=== PATIENT | female | born 1940 | race Caucasian/White ===

== ENCOUNTER 2017-07-07 13:20 | Inpatient (IN) | payer MEDICARE ==
[~2017-07-07] VITALS: Ht 157.5 cm; Wt 54.5 kg
[~2017-07-07 13:20] MED LIST: ALBU2.5V2 IH; ALPR0.5T8 PO; AMOX250C4 PO; ASPI-555 PO; ATOR10TA69 PO; BUDE0.5A8 IH; DOXY100T2 PO; ESTR1TAB30 PO; FLUT16H NS; FOLI1TAB15 PO; HYDR500C2 PO; IPRA0.2S54 IH; MIRT15TA6 PO; MIRT15TA7 PO; NICO-578 BC; ONDA4TAB9 PO; PANT40TA PO; PARO37.511 PO; PRED20TA3 PO; ROFL500T PO; SERT50TA12 PO; SPIR25TA4 PO; SUCR1ORA3 PO; TIOT18CA3 IH; TRAM50TA4 PO; VERA360C2 PO; VIT1CAPS47 PO; XOPENEX HFA IH; ZOLP5TAB8 PO
[2017-07-07] MEDS ORDERED: METHYLPREDNISOLONE SOD SUCC 125MG/2ML VIAL ONE (14:10)
[2017-07-07] MEDS ORDERED: ONDANSETRON HCL 4 MG/2 ML VIAL ONE ×2 (14:10→18:20)
[2017-07-07 14:18] LABS: BASOPHILS % (AUTO) 0.5 % (0.0-5.0); EOSINOPHILS % (AUTO) 2.3 % (0.0-8.0); HEMATOCRIT 39.1 % (36-48); LYMPHOCYTES % (AUTO) 7.5 % (21.0-51.0); MEAN CORPUSCULAR HEMOGLOBIN 27.4 pg (27.0-33.0); MEAN CORPUSCULAR HGB CONC 31.5 g/dL (32.0-36.0); MEAN CORPUSCULAR VOLUME 86.8 fL (79-99); MONOCYTES % (AUTO) 5.4 % (3.0-13.0); NEUTROPHILS % (AUTO) 84.3 % (40.0-77.0); PLATELET COUNT (AUTO) 621 K/uL (130-400); RED CELL DISTRIBUTION WIDTH 18.4 % (11.0-15.5); WHITE BLOOD COUNT (AUTO) 9.9 K/uL (4.8-10.8)
[2017-07-07] MEDS ORDERED: IPRATROPIUM/ALBUTEROL SULFATE 3 ML SOLUTION IH ONE ×2 (14:20→23:03)
[2017-07-07 14:26] LABS: CREATININE 1.2 mg/dL (0.5-1.5); POTASSIUM 3.5 mmol/L (3.5-5.1)
[2017-07-07] MEDS ORDERED: LEVOFLOXACIN 500 MG/D5W 100 ML 100 ML ONE (16:41)
[2017-07-07] MEDS ORDERED: SODIUM CHLORIDE 0.9% 1000ML 1,000 ML IV ONE (16:41)
[2017-07-07] MEDS ORDERED: ZOLPIDEM TARTRATE 5 MG TAB PO PRN (17:00)
[2017-07-07] MEDS: SODIUM CHLORIDE 0.9% 1000ML 1,000 ML IV SCH (17:00)
[2017-07-07] MEDS: IPRATROPIUM/ALBUTEROL SULFATE 3 ML SOLUTION IH PRN ×2 (18:24→23:05)
[2017-07-07] MEDS ORDERED: ACETYLCYSTEINE 20% 200MG/ML 4ML VIAL ONE (18:29)
[2017-07-07] MEDS: BUDESONIDE 0.5 MG/2 ML INH IH SCH (18:39)
[2017-07-07] MEDS ORDERED: METHYLPREDNISOLONE SOD SUCC 40MG/ML 1ML ONE (21:04)
[2017-07-07] MEDS ORDERED: ZOLPIDEM TARTRATE 5 MG TAB ONE (21:04)
[2017-07-08] MEDS ORDERED: METHYLPREDNISOLONE SOD SUCC 40MG/ML 1ML ONE ×2 (03:08→09:00)
[2017-07-08] MEDS: IPRATROPIUM/ALBUTEROL SULFATE 3 ML SOLUTION IH PRN ×4 (07:02→21:42)
[2017-07-08] MEDS: BUDESONIDE 0.5 MG/2 ML INH IH SCH ×2 (07:02→22:00)
[2017-07-08] MEDS ORDERED: IPRATROPIUM/ALBUTEROL SULFATE 3 ML SOLUTION IH ONE ×2 (07:05→11:41)
[2017-07-08] MEDS: SODIUM CHLORIDE 0.9% 1000ML 1,000 ML IV SCH (08:24)
[2017-07-08] MEDS ORDERED: SODIUM CHLORIDE 0.9% 1000ML 1,000 ML IV ONE (09:00)
[2017-07-08] MEDS ORDERED: LEVOFLOXACIN 500 MG/D5W 100 ML 100 ML ONE (09:00)
[2017-07-08] MEDS: METHYLPREDNISOLONE SOD SUCC 40MG/ML 1ML IVP SCH ×2 (10:00→20:50)
[2017-07-08 12:49] VITALS: BP 133/62
[2017-07-08] MEDS: LEVOFLOXACIN 500 MG/D5W 100 ML 100 ML IV SCH (13:28)
[2017-07-08] MEDS ORDERED: CARAL PO (13:43)
[2017-07-08] MEDS ORDERED: [UNRECOGNIZED DRUG - OTHER] PO (13:43)
[2017-07-08] MEDS ORDERED: VERA180C2 PO (13:43)
[2017-07-08] MEDS ORDERED: ESOM40CA54 PO (13:43)
[2017-07-08] MEDS ORDERED: VIT1CAPS47 PO (13:43)
[2017-07-08] MEDS ORDERED: MONT10TA24 PO (13:43)
[2017-07-08] MEDS ORDERED: ALPRAZOLAM 0.5 MG TABLET PO PRN (14:30)
[2017-07-08 16:06] VITALS: BP 119/63
[2017-07-08 20:00] VITALS: BP 112/58
[2017-07-08] MEDS: ATORVASTATIN CALCIUM 10 MG TABLET PO SCH (20:50)
[2017-07-08] MEDS: ZOLPIDEM TARTRATE 5 MG TAB PO PRN (21:16)
[2017-07-09] VITALS: BP 134/55
[2017-07-09] MEDS: METHYLPREDNISOLONE SOD SUCC 40MG/ML 1ML IVP SCH ×2 (03:59→10:27)
[2017-07-09 04:00] VITALS: BP 137/71
[2017-07-09 05:44] LABS: HEMATOCRIT 33.7 % (36-48); MEAN CORPUSCULAR HEMOGLOBIN 27.2 pg (27.0-33.0); MEAN CORPUSCULAR HGB CONC 31.3 g/dL (32.0-36.0); MEAN CORPUSCULAR VOLUME 86.9 fL (79-99); PLATELET COUNT (AUTO) 748 K/uL (130-400); RED BLOOD CELL COUNT(AUTO) 3.87 MIL/uL (4.00-5.50); RED CELL DISTRIBUTION WIDTH 18.6 % (11.0-15.5); WHITE BLOOD COUNT (AUTO) 19.1 K/uL (4.8-10.8)
[2017-07-09 05:59] LABS: CREATININE 1.1 mg/dL (0.5-1.5); POTASSIUM 3.9 mmol/L (3.5-5.1)
[2017-07-09] MEDS: IPRATROPIUM/ALBUTEROL SULFATE 3 ML SOLUTION IH PRN ×4 (06:58→22:02)
[2017-07-09 07:00] VITALS: BP 131/79
[2017-07-09] MEDS: BUDESONIDE 0.5 MG/2 ML INH IH SCH ×2 (07:16→18:28)
[2017-07-09] MEDS: ESTROGEN ESTER PO SCH (09:00)
[2017-07-09] MEDS: TESTOSTERONE PO SCH (09:00)
[2017-07-09] MEDS: MIRTAZAPINE 15 MG TABLET PO SCH (10:22)
[2017-07-09] MEDS: SERTRALINE HCL 50 MG TABLET PO SCH (10:22)
[2017-07-09] MEDS: PANTOPRAZOLE SODIUM 40 MG TABLET.DR PO SCH (10:22)
[2017-07-09] MEDS: FOLIC ACID 1 MG TABLET PO SCH (10:22)
[2017-07-09] MEDS: FLUTICASONE PROPIONATE 50MCG/SPRAY 16 GM BOTTLE NS SCH (10:22)
[2017-07-09] MEDS: SPIRONOLACTONE 25 MG TAB PO SCH (10:22)
[2017-07-09] MEDS: ASPIRIN 81 MG EC TAB PO SCH (10:22)
[2017-07-09] MEDS: HYDROXYUREA 500 MG CAP PO SCH (10:27)
[2017-07-09 11:00] VITALS: BP_SYST 107; BP_SYST 148; BP_DIAS 60; BP_DIAS 70
[2017-07-09 16:00] VITALS: BP 136/63
[2017-07-09] MEDS: LEVOFLOXACIN 500 MG/D5W 100 ML 100 ML IV SCH (17:08)
[2017-07-09] MEDS: SODIUM CHLORIDE 0.9% 1000ML 1,000 ML IV SCH (17:08)
[2017-07-09 20:00] VITALS: BP 126/62
[2017-07-09] MEDS: ATORVASTATIN CALCIUM 10 MG TABLET PO SCH (21:40)
[2017-07-09] MEDS: ZOLPIDEM TARTRATE 5 MG TAB PO PRN (21:44)
[2017-07-10] VITALS: BP 129/60
[2017-07-10 04:00] VITALS: BP 124/64
[2017-07-10 04:35] LABS: HEMATOCRIT 33.2 % (36-48); MEAN CORPUSCULAR HEMOGLOBIN 27.3 pg (27.0-33.0); MEAN CORPUSCULAR HGB CONC 31.5 g/dL (32.0-36.0); MEAN CORPUSCULAR VOLUME 86.7 fL (79-99); PLATELET COUNT (AUTO) 744 K/uL (130-400); RED BLOOD CELL COUNT(AUTO) 3.83 MIL/uL (4.00-5.50); RED CELL DISTRIBUTION WIDTH 18.8 % (11.0-15.5); WHITE BLOOD COUNT (AUTO) 17.3 K/uL (4.8-10.8)
[2017-07-10] MEDS: SODIUM CHLORIDE 0.9% 1000ML 1,000 ML IV SCH (06:22)
[2017-07-10] MEDS: PANTOPRAZOLE SODIUM 40 MG TABLET.DR PO SCH (06:41)
[2017-07-10 07:00] VITALS: BP 144/84
[2017-07-10] MEDS: IPRATROPIUM/ALBUTEROL SULFATE 3 ML SOLUTION IH PRN ×4 (07:30→22:32)
[2017-07-10] MEDS: BUDESONIDE 0.5 MG/2 ML INH IH SCH ×2 (07:50→17:51)
[2017-07-10] MEDS: ASPIRIN 81 MG EC TAB PO SCH (09:08)
[2017-07-10] MEDS: SPIRONOLACTONE 25 MG TAB PO SCH (09:08)
[2017-07-10] MEDS: FOLIC ACID 1 MG TABLET PO SCH (09:08)
[2017-07-10] MEDS: SERTRALINE HCL 50 MG TABLET PO SCH (09:08)
[2017-07-10] MEDS: MIRTAZAPINE 15 MG TABLET PO SCH (09:08)
[2017-07-10] MEDS: HYDROXYUREA 500 MG CAP PO SCH (09:08)
[2017-07-10] MEDS: TESTOSTERONE PO SCH (09:09)
[2017-07-10] MEDS: ESTROGEN ESTER PO SCH (09:09)
[2017-07-10] MEDS: FLUTICASONE PROPIONATE 50MCG/SPRAY 16 GM BOTTLE NS SCH (09:09)
[2017-07-10] MEDS ORDERED: ONDA8TAB12 SL (10:58)
[2017-07-10 11:00] VITALS: BP 134/84
[2017-07-10] MEDS: ONDANSETRON ODT 4 MG TAB SL PRN (11:23)
[2017-07-10 16:00] VITALS: BP 136/76
[2017-07-10] MEDS: LEVOFLOXACIN 500 MG/D5W 100 ML 100 ML IV SCH (18:58)
[2017-07-10] MEDS: HYDROMORPHONE HCL 2 MG/ML VIAL IVP PRN (18:58)
[2017-07-10 19:40] VITALS: BP 129/75
[2017-07-10] MEDS: ZOSYN 3.375GM+NS 50ML 50 ML IV SCH (20:13)
[2017-07-10] MEDS: METHYLPREDNISOLONE SOD SUCC 40MG/ML 1ML IVP SCH (20:13)
[2017-07-10] MEDS: ATORVASTATIN CALCIUM 10 MG TABLET PO SCH (20:13)
[2017-07-10] MEDS: ZOLPIDEM TARTRATE 5 MG TAB PO PRN (22:39)
[2017-07-11] VITALS (7 sets, daily range): BP systolic 114–152; BP diastolic 56–77
[2017-07-11] MEDS: ZOSYN 3.375GM+NS 50ML 50 ML IV SCH ×3 (05:04→21:18)
[2017-07-11] MEDS: ONDANSETRON ODT 4 MG TAB SL PRN (05:34)
[2017-07-11] MEDS: IPRATROPIUM/ALBUTEROL SULFATE 3 ML SOLUTION IH PRN ×4 (06:45→22:32)
[2017-07-11] MEDS: PANTOPRAZOLE SODIUM 40 MG TABLET.DR PO SCH (06:47)
[2017-07-11] MEDS: BUDESONIDE 0.5 MG/2 ML INH IH SCH ×2 (06:57→17:56)
[2017-07-11] MEDS: MIRTAZAPINE 15 MG TABLET PO SCH (09:43)
[2017-07-11] MEDS: ASPIRIN 81 MG EC TAB PO SCH (09:43)
[2017-07-11] MEDS: SPIRONOLACTONE 25 MG TAB PO SCH (09:43)
[2017-07-11] MEDS: SERTRALINE HCL 50 MG TABLET PO SCH (09:43)
[2017-07-11] MEDS: HYDROXYUREA 500 MG CAP PO SCH (09:43)
[2017-07-11] MEDS: FOLIC ACID 1 MG TABLET PO SCH (09:43)
[2017-07-11] MEDS: TESTOSTERONE PO SCH (09:44)
[2017-07-11] MEDS: ESTROGEN ESTER PO SCH (09:44)
[2017-07-11] MEDS: METHYLPREDNISOLONE SOD SUCC 40MG/ML 1ML IVP SCH ×2 (09:45→21:18)
[2017-07-11] MEDS: FLUTICASONE PROPIONATE 50MCG/SPRAY 16 GM BOTTLE NS SCH (09:49)
[2017-07-11] MEDS: LEVOFLOXACIN 500 MG/D5W 100 ML 100 ML IV SCH (20:11)
[2017-07-11] MEDS: ATORVASTATIN CALCIUM 10 MG TABLET PO SCH (21:18)
[2017-07-11] MEDS: ZOLPIDEM TARTRATE 5 MG TAB PO PRN (23:38)
[2017-07-12 04:00] VITALS: BP 135/55
[2017-07-12] MEDS: ZOSYN 3.375GM+NS 50ML 50 ML IV SCH ×3 (04:35→17:07)
[2017-07-12 05:55] LABS: HEMATOCRIT 35.7 % (36-48); MEAN CORPUSCULAR HEMOGLOBIN 26.6 pg (27.0-33.0); MEAN CORPUSCULAR HGB CONC 31.1 g/dL (32.0-36.0); MEAN CORPUSCULAR VOLUME 85.7 fL (79-99); RED BLOOD CELL COUNT(AUTO) 4.17 MIL/uL (4.00-5.50); RED CELL DISTRIBUTION WIDTH 18.8 % (11.0-15.5); WHITE BLOOD COUNT (AUTO) 15.4 K/uL (4.8-10.8)
[2017-07-12 05:57] LABS: PLATELET COUNT (AUTO) 1119 K/uL (130-400)
[2017-07-12 06:04] LABS: CREATININE 1.3 mg/dL (0.5-1.5); POTASSIUM 3.8 mmol/L (3.5-5.1)
[2017-07-12] MEDS: PANTOPRAZOLE SODIUM 40 MG TABLET.DR PO SCH (06:27)
[2017-07-12] MEDS: IPRATROPIUM/ALBUTEROL SULFATE 3 ML SOLUTION IH PRN ×4 (07:19→22:20)
[2017-07-12] MEDS: BUDESONIDE 0.5 MG/2 ML INH IH SCH ×2 (07:40→19:28)
[2017-07-12 07:43] VITALS: BP 137/65
[2017-07-12] MEDS: TESTOSTERONE PO SCH (09:00)
[2017-07-12] MEDS: ESTROGEN ESTER PO SCH (09:00)
[2017-07-12] MEDS: ONDANSETRON HCL 4 MG/2 ML VIAL IVP PRN (10:40)
[2017-07-12] MEDS: FOLIC ACID 1 MG TABLET PO SCH (10:43)
[2017-07-12] MEDS: SPIRONOLACTONE 25 MG TAB PO SCH (10:43)
[2017-07-12] MEDS: MIRTAZAPINE 15 MG TABLET PO SCH (10:43)
[2017-07-12] MEDS: METHYLPREDNISOLONE SOD SUCC 40MG/ML 1ML IVP SCH (10:45)
[2017-07-12] MEDS: SERTRALINE HCL 50 MG TABLET PO SCH (10:45)
[2017-07-12] MEDS: ASPIRIN 81 MG EC TAB PO SCH (10:45)
[2017-07-12] MEDS: HYDROXYUREA 500 MG CAP PO SCH (10:46)
[2017-07-12] MEDS: FLUTICASONE PROPIONATE 50MCG/SPRAY 16 GM BOTTLE NS SCH (10:49)
[2017-07-12 10:54] VITALS: BP 126/61
[2017-07-12 16:45] VITALS: BP 134/64
[2017-07-12] MEDS: LEVOFLOXACIN 500 MG/D5W 100 ML 100 ML IV SCH (17:07)
[2017-07-12 19:10] VITALS: BP 139/70
[2017-07-12] MEDS: ATORVASTATIN CALCIUM 10 MG TABLET PO SCH (22:34)
[2017-07-12] MEDS: ZOLPIDEM TARTRATE 5 MG TAB PO PRN (22:38)
[2017-07-12 23:15] VITALS: BP 116/57
[2017-07-13 03:10] VITALS: BP 147/74
[2017-07-13] MEDS: ZOSYN 3.375GM+NS 50ML 50 ML IV SCH ×3 (03:11→19:51)
[2017-07-13] MEDS: HYDROMORPHONE HCL 2 MG/ML VIAL IVP PRN (05:37)
[2017-07-13] MEDS: IPRATROPIUM/ALBUTEROL SULFATE 3 ML SOLUTION IH PRN ×4 (07:14→23:08)
[2017-07-13] MEDS: BUDESONIDE 0.5 MG/2 ML INH IH SCH ×2 (07:27→19:37)
[2017-07-13 07:56] VITALS: BP 154/85
[2017-07-13] MEDS: ESTROGEN ESTER PO SCH (09:00)
[2017-07-13] MEDS: TESTOSTERONE PO SCH (09:00)
[2017-07-13 11:03] VITALS: BP 145/76
[2017-07-13] MEDS: ASPIRIN 81 MG EC TAB PO SCH (11:28)
[2017-07-13] MEDS: PREDNISONE 20 MG TABLET PO SCH (11:28)
[2017-07-13] MEDS: MIRTAZAPINE 15 MG TABLET PO SCH (11:29)
[2017-07-13] MEDS: HYDROXYUREA 500 MG CAP PO SCH ×2 (11:29→20:47)
[2017-07-13] MEDS: SPIRONOLACTONE 25 MG TAB PO SCH (11:29)
[2017-07-13] MEDS: FOLIC ACID 1 MG TABLET PO SCH (11:30)
[2017-07-13] MEDS: SERTRALINE HCL 50 MG TABLET PO SCH (11:30)
[2017-07-13] MEDS: PANTOPRAZOLE SODIUM 40 MG TABLET.DR PO SCH (11:33)
[2017-07-13] MEDS: FLUTICASONE PROPIONATE 50MCG/SPRAY 16 GM BOTTLE NS SCH (11:39)
[2017-07-13 15:57] VITALS: BP 139/77
[2017-07-13] MEDS: LEVOFLOXACIN 500 MG/D5W 100 ML 100 ML IV SCH (16:35)
[2017-07-13 19:10] VITALS: BP 140/72
[2017-07-13] MEDS: ATORVASTATIN CALCIUM 10 MG TABLET PO SCH (20:47)
[2017-07-13] MEDS: ZOLPIDEM TARTRATE 5 MG TAB PO PRN (20:47)
[2017-07-13 23:10] VITALS: BP 139/73
[2017-07-14 03:10] VITALS: BP 148/74
[2017-07-14] MEDS: ZOSYN 3.375GM+NS 50ML 50 ML IV SCH ×2 (04:26→11:50)
[2017-07-14 05:12] LABS: HEMATOCRIT 33.9 % (36-48); MEAN CORPUSCULAR HEMOGLOBIN 27.4 pg (27.0-33.0); MEAN CORPUSCULAR HGB CONC 31.8 g/dL (32.0-36.0); MEAN CORPUSCULAR VOLUME 86.3 fL (79-99); RED BLOOD CELL COUNT(AUTO) 3.93 MIL/uL (4.00-5.50); RED CELL DISTRIBUTION WIDTH 18.9 % (11.0-15.5); WHITE BLOOD COUNT (AUTO) 16.6 K/uL (4.8-10.8)
[2017-07-14 05:16] LABS: PLATELET COUNT (AUTO) 1393 K/uL (130-400)
[2017-07-14] MEDS: BUDESONIDE 0.5 MG/2 ML INH IH SCH ×2 (07:07→19:10)
[2017-07-14 07:36] VITALS: BP 136/71
[2017-07-14] MEDS: FOLIC ACID 1 MG TABLET PO SCH (08:19)
[2017-07-14] MEDS: MIRTAZAPINE 15 MG TABLET PO SCH (08:19)
[2017-07-14] MEDS: SERTRALINE HCL 50 MG TABLET PO SCH (08:19)
[2017-07-14] MEDS: SPIRONOLACTONE 25 MG TAB PO SCH (08:20)
[2017-07-14] MEDS: PREDNISONE 20 MG TABLET PO SCH ×2 (08:21→08:44)
[2017-07-14] MEDS: PANTOPRAZOLE SODIUM 40 MG TABLET.DR PO SCH (08:21)
[2017-07-14] MEDS: TESTOSTERONE PO SCH (08:34)
[2017-07-14] MEDS: ESTROGEN ESTER PO SCH (08:34)
[2017-07-14] MEDS: HYDROXYUREA 500 MG CAP PO SCH ×2 (08:35→22:09)
[2017-07-14] MEDS: FLUTICASONE PROPIONATE 50MCG/SPRAY 16 GM BOTTLE NS SCH (08:36)
[2017-07-14] MEDS: ASPIRIN 81 MG EC TAB PO SCH (08:40)
[2017-07-14] MEDS: IPRATROPIUM/ALBUTEROL SULFATE 3 ML SOLUTION IH PRN ×4 (10:27→22:23)
[2017-07-14 11:22] VITALS: BP 131/76
[2017-07-14] MEDS ORDERED: HYDROXYUREA 500 MG CAP PO SCH (12:00)
[2017-07-14 15:52] VITALS: BP 137/79
[2017-07-14] MEDS: LEVOFLOXACIN 500 MG/D5W 100 ML 100 ML IV SCH (16:30)
[2017-07-14] MEDS: ONDANSETRON HCL 4 MG/2 ML VIAL IVP PRN (16:38)
[2017-07-14 20:47] VITALS: BP 126/64
[2017-07-14] MEDS: ATORVASTATIN CALCIUM 10 MG TABLET PO SCH (22:09)
[2017-07-14] MEDS: ZOLPIDEM TARTRATE 5 MG TAB PO PRN (22:09)
[2017-07-15 00:30] VITALS: BP 124/63
[2017-07-15] MEDS: ZOSYN 3.375GM+NS 50ML 50 ML IV SCH ×4 (04:15→19:08)
[2017-07-15 04:46] VITALS: BP 129/66
[2017-07-15 04:53] LABS: EOSINOPHILS % (AUTO) 0.8 % (0.0-8.0); LYMPHOCYTES % (AUTO) 5.6 % (21.0-51.0); MEAN CORPUSCULAR HGB CONC 31.5 g/dL (32.0-36.0); MEAN CORPUSCULAR VOLUME 85.7 fL (79-99); MONOCYTES % (AUTO) 5.9 % (3.0-13.0); NEUTROPHILS % (AUTO) 87.7 % (40.0-77.0); RED BLOOD CELL COUNT(AUTO) 3.97 MIL/uL (4.00-5.50); RED CELL DISTRIBUTION WIDTH 18.5 % (11.0-15.5); WHITE BLOOD COUNT (AUTO) 18.5 K/uL (4.8-10.8)
[2017-07-15 04:57] LABS: PLATELET COUNT (AUTO) 1393 K/uL (130-400)
[2017-07-15 05:12] LABS: ALBUMIN 2.2 g/dL (3.5-5.0); BILIRUBIN,TOTAL 0.1 mg/dL (0.2-1.0); CREATININE 1.1 mg/dL (0.5-1.5); POTASSIUM 3.4 mmol/L (3.5-5.1); TOTAL PROTEIN, SERUM 4.9 g/dL (6.0-8.3)
[2017-07-15 07:00] VITALS: BP 161/77
[2017-07-15] MEDS: BUDESONIDE 0.5 MG/2 ML INH IH SCH ×2 (07:15→19:12)
[2017-07-15] MEDS: ASPIRIN 81 MG EC TAB PO SCH (09:59)
[2017-07-15] MEDS: PREDNISONE 20 MG TABLET PO SCH (10:00)
[2017-07-15] MEDS: FOLIC ACID 1 MG TABLET PO SCH (10:00)
[2017-07-15] MEDS: HYDROXYUREA 500 MG CAP PO SCH ×2 (10:00→12:42)
[2017-07-15] MEDS: MIRTAZAPINE 15 MG TABLET PO SCH (10:00)
[2017-07-15] MEDS: SPIRONOLACTONE 25 MG TAB PO SCH (10:00)
[2017-07-15] MEDS: SERTRALINE HCL 50 MG TABLET PO SCH (10:00)
[2017-07-15] MEDS: PANTOPRAZOLE SODIUM 40 MG TABLET.DR PO SCH (10:00)
[2017-07-15] MEDS: TESTOSTERONE PO SCH (10:02)
[2017-07-15] MEDS: ESTROGEN ESTER PO SCH (10:02)
[2017-07-15] MEDS: FLUTICASONE PROPIONATE 50MCG/SPRAY 16 GM BOTTLE NS SCH (10:07)
[2017-07-15] MEDS: IPRATROPIUM/ALBUTEROL SULFATE 3 ML SOLUTION IH PRN ×4 (10:11→21:43)
[2017-07-15 11:00] VITALS: BP 116/59
[2017-07-15] MEDS ORDERED: BENZONATATE 100 MG CAPSULE PO ONE (12:34)
[2017-07-15] MEDS: BENZONATATE 100 MG CAPSULE PO SCH ×2 (12:41→23:06)
[2017-07-15 16:00] VITALS: BP 126/70
[2017-07-15] MEDS: LEVOFLOXACIN 500 MG/D5W 100 ML 100 ML IV SCH (16:53)
[2017-07-15 20:05] VITALS: BP 139/66
[2017-07-15] MEDS: ATORVASTATIN CALCIUM 10 MG TABLET PO SCH (23:07)
[2017-07-15] MEDS: ZOLPIDEM TARTRATE 5 MG TAB PO PRN (23:07)
[2017-07-16] VITALS: BP 138/65
[2017-07-16] MEDS: ZOSYN 3.375GM+NS 50ML 50 ML IV SCH ×2 (03:20→11:32)
[2017-07-16 04:35] VITALS: BP 170/77
[2017-07-16] MEDS: HYDROMORPHONE HCL 2 MG/ML VIAL IVP PRN (04:43)
[2017-07-16 04:54] LABS: HEMATOCRIT 34.6 % (36-48); MEAN CORPUSCULAR HEMOGLOBIN 27.1 pg (27.0-33.0); MEAN CORPUSCULAR HGB CONC 31.8 g/dL (32.0-36.0); MEAN CORPUSCULAR VOLUME 85.1 fL (79-99); RED BLOOD CELL COUNT(AUTO) 4.07 MIL/uL (4.00-5.50); RED CELL DISTRIBUTION WIDTH 18.8 % (11.0-15.5); WHITE BLOOD COUNT (AUTO) 19.5 K/uL (4.8-10.8)
[2017-07-16 05:09] VITALS: BP 146/75
[2017-07-16 05:23] LABS: CREATININE 1.1 mg/dL (0.5-1.5)
[2017-07-16 05:26] LABS: PLATELET COUNT (AUTO) 1441 K/uL (130-400)
[2017-07-16] MEDS: BUDESONIDE 0.5 MG/2 ML INH IH SCH (06:46)
[2017-07-16] MEDS: IPRATROPIUM/ALBUTEROL SULFATE 3 ML SOLUTION IH PRN ×3 (06:46→14:50)
[2017-07-16 07:00] VITALS: BP 156/78
[2017-07-16] MEDS: PANTOPRAZOLE SODIUM 40 MG TABLET.DR PO SCH (07:40)
[2017-07-16] MEDS: BENZONATATE 100 MG CAPSULE PO SCH (08:23)
[2017-07-16] MEDS: MIRTAZAPINE 15 MG TABLET PO SCH (08:23)
[2017-07-16] MEDS: SPIRONOLACTONE 25 MG TAB PO SCH (08:23)
[2017-07-16] MEDS: PREDNISONE 20 MG TABLET PO SCH (08:23)
[2017-07-16] MEDS: SERTRALINE HCL 50 MG TABLET PO SCH (08:23)
[2017-07-16] MEDS: FOLIC ACID 1 MG TABLET PO SCH (08:23)
[2017-07-16] MEDS: ASPIRIN 81 MG EC TAB PO SCH (08:23)
[2017-07-16] MEDS: HYDROXYUREA 500 MG CAP PO SCH (08:24)
[2017-07-16] MEDS: ESTROGEN ESTER PO SCH (08:25)
[2017-07-16] MEDS: TESTOSTERONE PO SCH (08:25)
[2017-07-16] MEDS: FLUTICASONE PROPIONATE 50MCG/SPRAY 16 GM BOTTLE NS SCH (09:00)
[2017-07-16 11:00] VITALS: BP 135/59
[2017-07-16 16:00] VITALS: BP 123/65
== END 2017-07-16 16:05 | disposition home or self-care (01) | DRG 189 ==
LOC: EDH 13:20 → EDHIP 16:21 → 3DH 07-08 12:17
PROVIDERS: ADMIT Internal Medicine; ATTEND Internal Medicine
PROC: 5A09357 Assistance with Respiratory Ventilation, Less than 24 Consecutive Hours, Continuous Positive Airway Pressure (ICD-10-PCS; principal; 2017-07-11)
PROC: 5A09357 Assistance with Respiratory Ventilation, Less than 24 Consecutive Hours, Continuous Positive Airway Pressure (ICD-10-PCS; 2017-07-11)
PROC: 5A09357 Assistance with Respiratory Ventilation, Less than 24 Consecutive Hours, Continuous Positive Airway Pressure (ICD-10-PCS; 2017-07-12)
PROC: 5A09357 Assistance with Respiratory Ventilation, Less than 24 Consecutive Hours, Continuous Positive Airway Pressure (ICD-10-PCS; 2017-07-16)
DX: J96.21 Acute and chronic respiratory failure with hypoxia (principal); Z99.81 Dependence on supplemental oxygen; D75.1 Secondary polycythemia; J44.1 Chronic obstructive pulmonary disease with (acute) exacerbation; E66.01 Morbid (severe) obesity due to excess calories; D64.9 Anemia, unspecified; K62.5 Hemorrhage of anus and rectum; D47.3 Essential (hemorrhagic) thrombocythemia; D72.829 Elevated white blood cell count, unspecified; T38.0X5A Adverse effect of glucocorticoids and synthetic analogues, initial encounter; E78.5 Hyperlipidemia, unspecified; R00.0 Tachycardia, unspecified; I10 Essential (primary) hypertension; F32.9 Major depressive disorder, single episode, unspecified; F51.04 Psychophysiologic insomnia; F41.9 Anxiety disorder, unspecified; Z88.6 Allergy status to analgesic agent; Z88.8 Allergy status to other drugs, medicaments and biological substances; Z79.899 Other long term (current) drug therapy; Z68.22 Body mass index [BMI] 22.0-22.9, adult; Z87.891 Personal history of nicotine dependence; Z80.3 Family history of malignant neoplasm of breast; Z80.1 Family history of malignant neoplasm of trachea, bronchus and lung
CPT/HCPCS: 36415; 71045; 80048; 80053; 84484; 85025; 85027; 87804; 93005; 94640; 94664; J1170; J1956; J2405; J2543; J2920; J2930; J7030; J7608

== ENCOUNTER 2017-07-30 14:43 | Emergency (ER) | payer MEDICARE ==
[~2017-07-30 14:43] MED LIST changes: -AMOX250C4 PO; +CARAL PO; -DOXY100T2 PO; +ESOM40CA54 PO; -MIRT15TA6 PO; +MONT10TA24 PO; -NICO-578 BC; -ONDA4TAB9 PO; +ONDA8TAB12 SL; -PANT40TA PO; -PARO37.511 PO; -PRED20TA3 PO; -SUCR1ORA3 PO; -TIOT18CA3 IH; -TRAM50TA4 PO; +VERA180C2 PO; -VERA360C2 PO; +[UNRECOGNIZED DRUG - OTHER] PO
[2017-07-30 15:09] LABS: BASOPHILS % (AUTO) 0.6 % (0.0-5.0); EOSINOPHILS % (AUTO) 2.2 % (0.0-8.0); HEMATOCRIT 40.2 % (36-48); LYMPHOCYTES % (AUTO) 9.4 % (21.0-51.0); MEAN CORPUSCULAR HGB CONC 32.1 g/dL (32.0-36.0); MEAN CORPUSCULAR VOLUME 90.4 fL (79-99); MONOCYTES % (AUTO) 3.9 % (3.0-13.0); NEUTROPHILS % (AUTO) 83.9 % (40.0-77.0); PLATELET COUNT (AUTO) 156 K/uL (130-400); RED BLOOD CELL COUNT(AUTO) 4.44 MIL/uL (4.00-5.50); RED CELL DISTRIBUTION WIDTH 21.7 % (11.0-15.5); WHITE BLOOD COUNT (AUTO) 9.9 K/uL (4.8-10.8)
[2017-07-30] MEDS ORDERED: IPRATROPIUM/ALBUTEROL SULFATE 3 ML SOLUTION IH ONE (15:15)
[2017-07-30 15:17] LABS: POTASSIUM 4.1 mmol/L (3.5-5.1)
[2017-07-30] MEDS ORDERED: METHYLPREDNISOLONE SOD SUCC 125MG/2ML VIAL ONE (15:21)
[2017-07-30] MEDS ORDERED: METOCLOPRAMIDE 10 MG/2 ML VIAL ONE (15:21)
[2017-07-30] MEDS ORDERED: ACETAMINOPHEN EXTRA STRENGTH 500 MG TABLET ONE (15:21)
[2017-07-30] MEDS ORDERED: SODIUM CHLORIDE 0.9% 250 ML IV ONE (15:22)
[2017-07-30 15:57] LABS: B-TYPE NATRIURETIC PEPTIDE 101 pg/mL (0-100)
[2017-07-30 17:04] LABS: APPEARANCE,URINE CLOUDY (CLEAR); BILIRUBIN,URINE NEGATIVE (NEGATIVE); COLOR,URINE YELLOW (YELLOW); GLUCOSE, URINE (UA) NEGATIVE (NEGATIVE); KETONES,URINE NEGATIVE (NEGATIVE); LEUKOCYTE ESTERASE ,URINE MODERATE (NEGATIVE); NITRATE,URINE NEGATIVE (NEGATIVE); OCCULT BLOOD,URINE NEGATIVE (NEGATIVE); PROTEIN,URINE NEGATIVE (NEGATIVE); UROBILINOGEN,URINE 0.2 mg/dL (0.2-1.0)
[2017-07-30 17:06] LABS: BACTERIA,URINE Many /HPF (None Seen); RBC,URINE None Seen /HPF (0-1)
[2017-07-30 17:07] LABS: SQUAMOUS EPITHELIAL CELL,UR 30-50 /LPF (0-2)
== END 2017-07-30 18:22 | disposition home or self-care (01) ==
LOC: EDH 14:43
DX: J44.1 Chronic obstructive pulmonary disease with (acute) exacerbation (principal); I10 Essential (primary) hypertension; Z86.73 Personal history of transient ischemic attack (TIA), and cerebral infarction without residual deficits; Z88.5 Allergy status to narcotic agent; Z88.8 Allergy status to other drugs, medicaments and biological substances
CPT/HCPCS: 36415; 71045; 80048; 81001; 83880; 84484; 85025; 87804 ×2; 93005; 94640 ×2; 96374; 96375; 99285; J2765; J2930; J7030

== ENCOUNTER → 2018-04-04 | Outpatient (CLI) | payer MEDICARE ==
[~2018-04-04] MED LIST changes: -SPIR25TA4 PO; +SPIR25TA6 PO
== END | disposition home or self-care (01) ==
LOC: RAH 13:23
PROVIDERS: ATTEND Internal Medicine
DX: Z12.31 Encounter for screening mammogram for malignant neoplasm of breast (principal)
CPT/HCPCS: 77067

== ENCOUNTER 2018-05-05 17:08 | Emergency (ER) | payer MEDICARE ==
[2018-05-05 17:33] LABS: BASOPHILS % (AUTO) 0.2 % (0.0-5.0); EOSINOPHILS % (AUTO) 0.7 % (0.0-8.0); HEMATOCRIT 41.2 % (36-48); LYMPHOCYTES % (AUTO) 2.6 % (21.0-51.0); MEAN CORPUSCULAR HEMOGLOBIN 26.4 pg (27.0-33.0); MEAN CORPUSCULAR HGB CONC 31.1 g/dL (32.0-36.0); MEAN CORPUSCULAR VOLUME 84.7 fL (79-99); MONOCYTES % (AUTO) 5.5 % (3.0-13.0); PLATELET COUNT (AUTO) 561 K/uL (130-400); RED BLOOD CELL COUNT(AUTO) 4.87 MIL/uL (4.00-5.50); RED CELL DISTRIBUTION WIDTH 17.5 % (11.0-15.5)
[2018-05-05 17:44] LABS: CREATININE 1.3 mg/dL (0.5-1.5); INR 0.92 (0.85-1.15); PARTIAL THROMBOPLASTIN TIME 26.4 SEC (26.3-35.5); POTASSIUM 4.1 mmol/L (3.5-5.1); PROTHROMBIN TIME 9.7 SEC (9.6-11.6)
[2018-05-05 17:48] LABS: ALBUMIN 3.2 g/dL (3.5-5.0); BILIRUBIN,TOTAL 0.3 mg/dL (0.2-1.0); TOTAL PROTEIN, SERUM 7.3 g/dL (6.0-8.3)
[2018-05-05] MEDS ORDERED: ASPIRIN 325 MG TABLET ONE (18:09)
[2018-05-05] MEDS ORDERED: NITROGLYCERIN 1GM/1 INCH PACKET TD ONE (18:10)
[2018-05-05] MEDS ORDERED: IPRATROPIUM/ALBUTEROL SULFATE 3 ML SOLUTION IH ONE ×2 (18:13→22:50)
[2018-05-05] MEDS ORDERED: ACETAMINOPHEN 325 MG TAB ONE (22:42)
== END 2018-05-06 00:13 | disposition home or self-care (01) ==
LOC: EDH 17:08
DX: R07.89 Other chest pain (principal); J44.9 Chronic obstructive pulmonary disease, unspecified; I10 Essential (primary) hypertension; Z86.73 Personal history of transient ischemic attack (TIA), and cerebral infarction without residual deficits; Z79.899 Other long term (current) drug therapy; Z88.6 Allergy status to analgesic agent
CPT/HCPCS: 36415; 71045; 80053; 82550; 84484; 85025; 85610; 85730; 93005; 94640; 96374

== ENCOUNTER 2018-06-04 13:06 | Emergency (ER) | payer MEDICARE ==
[2018-06-04 13:37] LABS: BASOPHILS % (AUTO) 0.9 % (0.0-5.0); EOSINOPHILS % (AUTO) 1.2 % (0.0-8.0); HEMATOCRIT 41.6 % (36-48); LYMPHOCYTES % (AUTO) 7.3 % (21.0-51.0); MEAN CORPUSCULAR HEMOGLOBIN 26.2 pg (27.0-33.0); MEAN CORPUSCULAR HGB CONC 31.2 g/dL (32.0-36.0); MONOCYTES % (AUTO) 5.4 % (3.0-13.0); NEUTROPHILS % (AUTO) 85.2 % (40.0-77.0); PLATELET COUNT (AUTO) 424 K/uL (130-400); RED BLOOD CELL COUNT(AUTO) 4.95 MIL/uL (4.00-5.50); RED CELL DISTRIBUTION WIDTH 19.1 % (11.0-15.5); WHITE BLOOD COUNT (AUTO) 13.4 K/uL (4.8-10.8)
[2018-06-04 13:49] LABS: CREATININE 1.2 mg/dL (0.5-1.5); POTASSIUM 4.1 mmol/L (3.5-5.1)
[2018-06-04 13:54] LABS: ALBUMIN 3.1 g/dL (3.5-5.0); BILIRUBIN,TOTAL 0.4 mg/dL (0.2-1.0); TOTAL PROTEIN, SERUM 7.3 g/dL (6.0-8.3)
[2018-06-04 14:15] LABS: APPEARANCE,URINE Clear (CLEAR); BILIRUBIN,URINE Negative (NEGATIVE); COLOR,URINE Yellow (YELLOW); GLUCOSE, URINE (UA) Negative (NEGATIVE); KETONES,URINE Negative (NEGATIVE); LEUKOCYTE ESTERASE ,URINE Moderate (NEGATIVE); NITRATE,URINE Negative (NEGATIVE); OCCULT BLOOD,URINE Negative (NEGATIVE); PROTEIN,URINE Negative (NEGATIVE); UROBILINOGEN,URINE 0.2 mg/dL (0.2-1.0)
[2018-06-04] MEDS ORDERED: ONDANSETRON HCL 4 MG/2 ML VIAL ONE (14:26)
[2018-06-04] MEDS ORDERED: MORPHINE SULFATE 2 MG/ML 1ML SYG ONE (14:27)
[2018-06-04 14:30] LABS: BACTERIA,URINE Rare /HPF (None Seen); MUCUS,URINE Rare LPF (None Seen); RBC,URINE None Seen /HPF (0-1)
[2018-06-04] MEDS ORDERED: IOHEXOL 350 MG/ML 100ML INFUS..BTL IV ONE (14:58)
[2018-06-04] MEDS ORDERED: SODIUM CHLORIDE 0.9% 500ML 500 ML IV ONE (15:33)
== END 2018-06-04 17:16 | disposition home or self-care (01) ==
LOC: EDH 13:06
DX: R10.9 Unspecified abdominal pain (principal); R07.89 Other chest pain; I10 Essential (primary) hypertension; J44.9 Chronic obstructive pulmonary disease, unspecified; E78.5 Hyperlipidemia, unspecified; Z86.73 Personal history of transient ischemic attack (TIA), and cerebral infarction without residual deficits; Z87.891 Personal history of nicotine dependence; Z88.1 Allergy status to other antibiotic agents; Z88.8 Allergy status to other drugs, medicaments and biological substances
CPT/HCPCS: 36415; 71275; 80053; 81001; 83605; 83690; 83880; 84484; 85025; 93005; 96374; 96375; 99284; J2405; J7040; Q9967

== ENCOUNTER → 2018-09-23 | Outpatient (CLI) | payer MEDICARE ==
[~2018-09-23] MED LIST changes: -ASPI-555 PO; -CARAL PO; +CLON0.5T12 PO; +DESL5TAB28 PO; -FLUT16H NS; +LACT1CAP68 PO; +LORA10TA7 PO; +MIRT-72 PO; -MIRT15TA7 PO; +MULT-1258 PO; -ONDA8TAB12 SL; +PHEN1SUP RC; -SPIR25TA6 PO; +SUCR1TAB2 PO; +TRAM50TA4 PO; +VERA-7 PO; -VERA180C2 PO; -XOPENEX HFA IH
== END | disposition home or self-care (01) ==
LOC: RAH 14:22
PROVIDERS: ATTEND Internal Medicine
DX: J43.2 Centrilobular emphysema (principal); Z99.81 Dependence on supplemental oxygen
CPT/HCPCS: 71250

== ENCOUNTER 2018-12-20 17:58 | Observation (INO) | payer MEDICARE ==
[~2018-12-20] VITALS: Ht 157.5 cm; Wt 49.1 kg
[~2018-12-20 17:58] MED LIST changes: -VERA-7 PO; +VERA240T14 PO
[2018-12-20] MEDS ORDERED: BUDESONIDE 0.5 MG/2 ML INH IH ONE (18:58)
[2018-12-20 19:02] LABS: BASOPHILS % (AUTO) 0.4 % (0.0-5.0); EOSINOPHILS % (AUTO) 0.1 % (0.0-8.0); HEMATOCRIT 48.8 % (36-48); LYMPHOCYTES % (AUTO) 1.9 % (21.0-51.0); MEAN CORPUSCULAR HEMOGLOBIN 27.5 pg (27.0-33.0); MEAN CORPUSCULAR HGB CONC 31.7 g/dL (32.0-36.0); MEAN CORPUSCULAR VOLUME 86.7 fL (79-99); MONOCYTES % (AUTO) 1.1 % (3.0-13.0); NEUTROPHILS % (AUTO) 96.5 % (40.0-77.0); PLATELET COUNT (AUTO) 416 K/uL (130-400); RED BLOOD CELL COUNT(AUTO) 5.62 MIL/uL (4.00-5.50); RED CELL DISTRIBUTION WIDTH 19.7 % (11.0-15.5); WHITE BLOOD COUNT (AUTO) 15.3 K/uL (4.8-10.8)
[2018-12-20 19:16] LABS: CREATININE 1.2 mg/dL (0.5-1.5); POTASSIUM 4.1 mmol/L (3.5-5.1)
[2018-12-20 19:21] LABS: ALBUMIN 3.3 g/dL (3.5-5.0); BILIRUBIN,TOTAL 0.3 mg/dL (0.2-1.0)
[2018-12-20] MEDS ORDERED: METHYLPREDNISOLONE SOD SUCC 40MG/ML 1ML ONE (19:24)
[2018-12-20] MEDS: IPRATROPIUM/ALBUTEROL SULFATE 3 ML SOLUTION IH PRN ×2 (19:31→23:04)
[2018-12-20] MEDS ORDERED: ONDANSETRON HCL 4 MG/2 ML VIAL ONE (22:15)
[2018-12-20] MEDS ORDERED: ONDANSETRON HCL 4 MG/2 ML VIAL IVP PRN (23:30)
[2018-12-21] MEDS ORDERED: METHYLPREDNISOLONE SOD SUCC 40MG/ML 1ML ONE ×2 (02:01→08:25)
[2018-12-21] MEDS ORDERED: IPRATROPIUM/ALBUTEROL SULFATE 3 ML SOLUTION IH ONE ×2 (05:10→11:11)
[2018-12-21] MEDS ORDERED: BUDESONIDE 0.5 MG/2 ML INH IH ONE (05:10)
[2018-12-21] MEDS: BUDESONIDE 0.5 MG/2 ML INH IH SCH ×3 (05:12→19:20)
[2018-12-21] MEDS: IPRATROPIUM/ALBUTEROL SULFATE 3 ML SOLUTION IH PRN ×2 (05:12→11:14)
[2018-12-21 06:34] LABS: HEMATOCRIT 42.5 % (36-48); LYMPHOCYTES % (AUTO) 2.2 % (21.0-51.0); MEAN CORPUSCULAR HEMOGLOBIN 27.2 pg (27.0-33.0); MEAN CORPUSCULAR HGB CONC 31.6 g/dL (32.0-36.0); MEAN CORPUSCULAR VOLUME 85.9 fL (79-99); MONOCYTES % (AUTO) 1.1 % (3.0-13.0); NEUTROPHILS % (AUTO) 96.7 % (40.0-77.0); PLATELET COUNT (AUTO) 458 K/uL (130-400); RED BLOOD CELL COUNT(AUTO) 4.95 MIL/uL (4.00-5.50); RED CELL DISTRIBUTION WIDTH 19.4 % (11.0-15.5); WHITE BLOOD COUNT (AUTO) 14.6 K/uL (4.8-10.8)
[2018-12-21 06:37] LABS: CREATININE 1.4 mg/dL (0.5-1.5); POTASSIUM 4.5 mmol/L (3.5-5.1)
[2018-12-21 06:42] LABS: ALBUMIN 3.2 g/dL (3.5-5.0); BILIRUBIN,TOTAL 0.4 mg/dL (0.2-1.0); TOTAL PROTEIN, SERUM 6.2 g/dL (6.0-8.3)
[2018-12-21] MEDS ORDERED: ONDANSETRON HCL 4 MG/2 ML VIAL ONE (08:21)
[2018-12-21] MEDS ORDERED: PANTOPRAZOLE SODIUM 40 MG TABLET.DR PO SCH (09:00)
--- NOTE | 2018-12-21 10:25 | NUR ---
SANDIP DOUGLAS MET WITH PT WHO LIVES ALONE, BUT HAS 25/01 PRIVATE PAY CAREGIVERS TO ASSIST HER WITH ADLS, AND HOME MANAGEMENT. PT REPORTS SHE HAS BIPAP, AND SCOOTER AND HH 1X A WEEK, AND WILL PROVIDE NAME OF AGENCY. SEES DR CASTANEDA AND USES [facility]. CAREGIVERS TRANSPORT NEEDED. PLAN IS HOME AT [place] Addendum: 12/21/18 at 1029 by MITCH GAUTHIER Amended: Links added.
[2018-12-21 13:00] VITALS: BP 118/63
[2018-12-21] MEDS ORDERED: PHARMACY COMMUNICATION MISC SCH (14:15)
[2018-12-21] MEDS ORDERED: LOSA50TA64 PO (14:50)
[2018-12-21] MEDS ORDERED: BENZ-51 PO (14:50)
[2018-12-21] MEDS ORDERED: ALBUTEROL SULFATE 0.083% 2.5 MG/3 ML INH IH PRN (15:15)
[2018-12-21] MEDS ORDERED: CLONAZEPAM 0.5 MG TABLET PO SCH (15:15)
[2018-12-21] MEDS ORDERED: IPRATROPIUM 0.5 MG/2.5 ML INH IH PRN (15:15)
[2018-12-21 15:38] VITALS: BP 129/63
[2018-12-21] MEDS: SUCRALFATE 1 GM TABLET PO SCH (16:51)
[2018-12-21] MEDS: METHYLPREDNISOLONE SOD SUCC 40MG/ML 1ML IVP SCH ×2 (17:50→18:04)
[2018-12-21] MEDS ORDERED: ALPRAZOLAM 0.5 MG TABLET ONE (17:55)
[2018-12-21] MEDS ORDERED: ALPRAZOLAM 0.5 MG TABLET PO ONE (18:00)
[2018-12-21 19:00] VITALS: BP 132/63
[2018-12-21] MEDS: IPRATROPIUM/ALBUTEROL SULFATE 3 ML SOLUTION IH SCH ×2 (19:09→23:05)
[2018-12-21] MEDS ORDERED: AZITHROMYCIN 250 MG TABLET PO SCH (20:00)
[2018-12-21] MEDS ORDERED: ATORVASTATIN CALCIUM 10 MG TABLET PO SCH (21:00)
[2018-12-21] MEDS ORDERED: MIRTAZAPINE 15 MG TABLET PO SCH (21:00)
[2018-12-21] MEDS ORDERED: MONTELUKAST SODIUM 10 MG TAB PO SCH (21:00)
[2018-12-21] MEDS ORDERED: CLONAZEPAM 1 MG TABLET PO SCH (21:00)
[2018-12-21] MEDS ORDERED: ZOLPIDEM TARTRATE 5 MG TAB PO SCH (21:00)
[2018-12-21] MEDS: BENZONATATE 100 MG CAPSULE PO SCH (21:17)
[2018-12-21] MEDS: DOCUSATE SODIUM 100 MG CAP PO SCH (21:17)
[2018-12-21] MEDS: HYDROXYUREA 500 MG CAP PO SCH (21:18)
[2018-12-21 23:00] VITALS: BP 134/68
[2018-12-22 03:00] VITALS: BP 132/66
[2018-12-22 04:34] LABS: HEMATOCRIT 40.9 % (36-48); MEAN CORPUSCULAR HEMOGLOBIN 27.3 pg (27.0-33.0); MEAN CORPUSCULAR HGB CONC 31.5 g/dL (32.0-36.0); MEAN CORPUSCULAR VOLUME 86.5 fL (79-99); PLATELET COUNT (AUTO) 410 K/uL (130-400); RED BLOOD CELL COUNT(AUTO) 4.72 MIL/uL (4.00-5.50); RED CELL DISTRIBUTION WIDTH 19.5 % (11.0-15.5); WHITE BLOOD COUNT (AUTO) 21.7 K/uL (4.8-10.8)
[2018-12-22 04:42] LABS: CREATININE 1.4 mg/dL (0.5-1.5); POTASSIUM 4.1 mmol/L (3.5-5.1)
[2018-12-22] MEDS: BUDESONIDE 0.5 MG/2 ML INH IH SCH (06:29)
[2018-12-22] MEDS: IPRATROPIUM/ALBUTEROL SULFATE 3 ML SOLUTION IH SCH ×2 (06:29→11:52)
[2018-12-22] MEDS: SUCRALFATE 1 GM TABLET PO SCH ×3 (06:48→16:04)
[2018-12-22] MEDS ORDERED: PANTOPRAZOLE SODIUM 40 MG TABLET.DR PO SCH (07:30)
[2018-12-22 07:36] VITALS: BP 140/68
[2018-12-22] MEDS: DOCUSATE SODIUM 100 MG CAP PO SCH (08:49)
[2018-12-22] MEDS: HYDROXYUREA 500 MG CAP PO SCH (08:52)
[2018-12-22] MEDS: BENZONATATE 100 MG CAPSULE PO SCH ×2 (08:52→16:04)
[2018-12-22] MEDS ORDERED: VERAPAMIL HCL 240 MG SRTAB PO SCH (09:00)
[2018-12-22] MEDS ORDERED: ENOXAPARIN SODIUM 30 MG/0.3 ML SQ SCH (09:00)
[2018-12-22] MEDS ORDERED: SERTRALINE HCL 50 MG TABLET PO SCH (09:00)
[2018-12-22] MEDS ORDERED: ROFLUMILAST 500 MCG PO SCH (09:00)
[2018-12-22] MEDS ORDERED: LOSARTAN 50 MG TABLET PO SCH (09:00)
[2018-12-22] MEDS ORDERED: FOLIC ACID 1 MG TABLET PO SCH (09:00)
[2018-12-22] MEDS ORDERED: PREDNISONE 20 MG TABLET PO SCH (09:00)
[2018-12-22] MEDS ORDERED: DESLORATADINE 5 MG PO SCH (09:00)
[2018-12-22] MEDS ORDERED: TESTOSTERONE PO SCH (09:00)
[2018-12-22] MEDS ORDERED: LORATADINE 10 MG TABLET PO SCH (09:00)
[2018-12-22] MEDS ORDERED: ESTROGEN ESTER PO SCH (09:00)
[2018-12-22] MEDS ORDERED: HYDROXYUREA 500 MG CAP PO SCH (09:25)
[2018-12-22 11:57] VITALS: BP 130/58
[2018-12-22 15:16] VITALS: BP 119/50
--- NOTE | 2018-12-22 16:40 | NUR ---
RD Notification Pt tolerating current Heart Healthy Diet with Good PO(75-100%). Pt reports some constipation, RN notified, Pt states has received Colace. Pt LBM 12/19/18. Pt monitored labs: Cl 100, CO2 33, BUN 38, GFR 39, Glu 149, Alb 3.2. RD to update Pt food preferences. Pt with no other nutritional concerns at this time. RD encouraged Pt to notify as any nutrition concerns arise. RD to continue to monitor. Please notify RD as additional nutrition concerns arise. Thank you. Addendum: 12/22/18 at [address] Amended: Links added.
--- NOTE | 2018-12-22 17:35 | NUR ---
DISCHARGE VERBAL & WRITTEN DISCHARGE INSTRUCTIONS REVIEWED & GIVEN TO PT. QUESTIONS ENCOURAGED & CLARIFIED. PROPER CARE & PREVENTION OF ACUTER RESPIRATORY FAILURE REVIEWED. DOSE CHANGES TO HOME MEDICATIONS REVIEWED. DISCONTINUED HOME MEDICATION REVIEWED. PT TO F/U W/DR CASTANEDA IN 1 WEEK. TELE DELON REMOVED. PT & FAMILY TO GATHER PERSONAL BELONGINGS. WILL NOTIFY STAFF WHEN FAMILY ARRIVES TO TAKE PT HOME.
--- NOTE | 2018-12-22 18:40 | NUR ---
DISCHARGE PT TAKEN TO PRIVATE VEHICLE VIA WC BY Nathan SOW PCP, ACCOMPANIED BY FAMILY. NO DISTRESS NOTED.
== END 2018-12-22 18:40 | disposition home or self-care (01) ==
LOC: EDH 17:58 → EDHIP 18:15 → 2AH 12-21 12:53
PROVIDERS: ADMIT Internal Medicine; ATTEND Internal Medicine
DX: J96.11 Chronic respiratory failure with hypoxia (principal); D45 Polycythemia vera; E78.5 Hyperlipidemia, unspecified; I11.0 Hypertensive heart disease with heart failure; I50.9 Heart failure, unspecified; J44.1 Chronic obstructive pulmonary disease with (acute) exacerbation; G47.00 Insomnia, unspecified; F41.9 Anxiety disorder, unspecified; F32.9 Major depressive disorder, single episode, unspecified; Z86.73 Personal history of transient ischemic attack (TIA), and cerebral infarction without residual deficits; Z99.81 Dependence on supplemental oxygen
CPT/HCPCS: 36415 ×3; 71045; 71250; 80048; 80053 ×2; 83605 ×2; 85025 ×2; 85027; 94640 ×12; 94664; 96372; 96374; 99284; G0378 ×43; J1650; J2405 ×2; J2920 ×4

== ENCOUNTER → 2019-03-14 | Outpatient (CLI) | payer MEDICARE ==
[~2019-03-14] MED LIST changes: -ALPR0.5T8 PO; +BENZ-51 PO; -DESL5TAB28 PO; +DESL5TAB45 PO; +LOSA50TA64 PO
== END | disposition home or self-care (01) ==
LOC: RAH 13:46
PROVIDERS: ATTEND Internal Medicine
DX: G31.89 Other specified degenerative diseases of nervous system (principal); H53.129 Transient visual loss, unspecified eye; R90.82 White matter disease, unspecified
CPT/HCPCS: 70551

== ENCOUNTER 2019-03-28 13:40 | Inpatient (IN) | payer MEDICARE ==
[~2019-03-28] VITALS: Ht 157.5 cm; Wt 55.8 kg
[~2019-03-28 13:40] MED LIST changes: -CLON0.5T12 PO; +CLON0.5T4 PO
[2019-03-28] MEDS ORDERED: ASPIRIN 325 MG TABLET ONE (14:05)
[2019-03-28] MEDS ORDERED: IPRATROPIUM/ALBUTEROL SULFATE 3 ML SOLUTION IH ONE (14:24)
[2019-03-28 15:00] LABS: BASOPHILS % (AUTO) 0.4 % (0.0-5.0); EOSINOPHILS % (AUTO) 1.8 % (0.0-8.0); HEMATOCRIT 44.8 % (36-48); LYMPHOCYTES % (AUTO) 3.2 % (21.0-51.0); MEAN CORPUSCULAR HEMOGLOBIN 29.8 pg (27.0-33.0); MEAN CORPUSCULAR HGB CONC 32.5 g/dL (32.0-36.0); MEAN CORPUSCULAR VOLUME 91.9 fL (79-99); MONOCYTES % (AUTO) 5.9 % (3.0-13.0); NEUTROPHILS % (AUTO) 88.7 % (40.0-77.0); PLATELET COUNT (AUTO) 657 K/uL (130-400); RED BLOOD CELL COUNT(AUTO) 4.87 MIL/uL (4.00-5.50); RED CELL DISTRIBUTION WIDTH 15.9 % (11.0-15.5); WHITE BLOOD COUNT (AUTO) 19.8 K/uL (4.8-10.8)
[2019-03-28 15:13] LABS: CREATININE 1.1 mg/dL (0.5-1.5); POTASSIUM 3.9 mmol/L (3.5-5.1)
[2019-03-28 15:18] LABS: INR 0.9 (0.85-1.15); PARTIAL THROMBOPLASTIN TIME 27.2 SEC (26.3-35.5); PROTHROMBIN TIME 9.5 SEC (9.6-11.6)
[2019-03-28 15:26] LABS: ALBUMIN 2.9 g/dL (3.5-5.0); BILIRUBIN,TOTAL 0.2 mg/dL (0.2-1.0); TOTAL PROTEIN, SERUM 6.5 g/dL (6.0-8.3)
[2019-03-28] MEDS ORDERED: CEFTRIAXONE SODIUM 1 GM ONE (15:38)
[2019-03-28] MEDS ORDERED: IOHEXOL-350 75 ML VIAL IV ONE (16:00)
[2019-03-28] MEDS ORDERED: ACETAMINOPHEN 325 MG TAB ONE (16:03)
[2019-03-28 16:13] LABS: APPEARANCE,URINE Clear (CLEAR); BILIRUBIN,URINE Negative (NEGATIVE); COLOR,URINE Yellow (YELLOW); GLUCOSE, URINE (UA) Negative (NEGATIVE); KETONES,URINE Negative (NEGATIVE); LEUKOCYTE ESTERASE ,URINE Trace (NEGATIVE); NITRATE,URINE Negative (NEGATIVE); OCCULT BLOOD,URINE Negative (NEGATIVE); PROTEIN,URINE Negative (NEGATIVE); UROBILINOGEN,URINE 0.2 mg/dL (0.2-1.0)
[2019-03-28 16:42] LABS: RBC,URINE 0-1 /HPF (0-1)
[2019-03-28 16:43] LABS: BACTERIA,URINE Rare /HPF (None Seen); SQUAMOUS EPITHELIAL CELL,UR Few /HPF (0-2)
[2019-03-28] MEDS ORDERED: METHYLPREDNISOLONE SOD SUCC 40MG/ML 1ML ONE (17:38)
[2019-03-28] MEDS ORDERED: GLUCAGON 1MG KIT 1 MG ML IM PRN (17:45)
[2019-03-28] MEDS ORDERED: DEXTROSE 50%-WATER 50 ML DISP.SYRIN IV PRN (17:45)
[2019-03-28] MEDS: LEVOFLOXACIN 750 MG/D5W 150 ML 150 ML IV SCH (18:00)
[2019-03-28] MEDS: IPRATROPIUM/ALBUTEROL SULFATE 3 ML SOLUTION IH SCH ×2 (18:50→21:45)
[2019-03-28 19:00] VITALS: BP 134/61
[2019-03-28] MEDS ORDERED: IPRATROPIUM 0.5 MG/2.5 ML INH IH PRN (20:00)
[2019-03-28] MEDS ORDERED: ALBUTEROL SULFATE 0.083% 2.5 MG/3 ML INH IH PRN (20:00)
[2019-03-28] MEDS ORDERED: DOCUSATE SODIUM 100 MG CAP PO PRN (20:00)
[2019-03-28] MEDS ORDERED: DOCU-116 PO (20:05)
[2019-03-28] MEDS: BUDESONIDE 0.5 MG/2 ML INH IH SCH (20:29)
--- NOTE | 2019-03-28 20:35 | NUR ---
ER ADMIT Admitted from ER,admission care rendered.
[2019-03-28] MEDS ORDERED: BUDESONIDE 0.5 MG/2 ML INH IH SCH (21:00)
[2019-03-28] MEDS ORDERED: NON-FORMULARY MEDICATION 1 EACH (Vit C/E/Zn/Coppr/Lutein/Zeaxan (Preservision Areds 2 Soft PO SCH (21:00)
[2019-03-28] MEDS: MIRTAZAPINE 15 MG TABLET PO SCH ×2 (21:00→21:02)
[2019-03-28] MEDS: INSULIN R PO SS1 SQ SCH (21:00)
[2019-03-28] MEDS: CLONAZEPAM 0.5 MG TABLET PO SCH (21:02)
[2019-03-28] MEDS: TRAMADOL HCL 50 MG TABLET PO PRN (21:03)
[2019-03-28] MEDS: MONTELUKAST SODIUM 10 MG TAB PO SCH (21:03)
[2019-03-28] MEDS: BENZONATATE 100 MG CAPSULE PO SCH (21:03)
[2019-03-28] MEDS: ATORVASTATIN CALCIUM 10 MG TABLET PO SCH (21:03)
[2019-03-28] MEDS: ZOLPIDEM TARTRATE 5 MG TAB PO SCH (22:42)
[2019-03-29] VITALS (8 sets, daily range): BP systolic 111–149; BP diastolic 58–89
[2019-03-29] MEDS: IPRATROPIUM/ALBUTEROL SULFATE 3 ML SOLUTION IH SCH ×6 (01:58→22:18)
--- NOTE | 2019-03-29 05:12 | NUR ---
SLEPT Pt sleeping in bed,on bipap machine from home.
[2019-03-29] MEDS: INSULIN R PO SS1 SQ SCH ×4 (06:11→20:45)
[2019-03-29] MEDS: SUCRALFATE 1 GM TABLET PO SCH ×3 (06:33→17:15)
[2019-03-29] MEDS: TRAMADOL HCL 50 MG TABLET PO PRN (06:47)
[2019-03-29] MEDS: BUDESONIDE 0.5 MG/2 ML INH IH SCH ×2 (07:03→18:55)
[2019-03-29] MEDS: [UNRECOGNIZED DRUG - OTHER] PO SCH (09:00)
[2019-03-29] MEDS: BENZONATATE 100 MG CAPSULE PO SCH ×3 (09:00→20:48)
[2019-03-29] MEDS: [UNRECOGNIZED DRUG - OTHER] PO SCH (09:00)
[2019-03-29] MEDS ORDERED: DESLORATADINE 5 MG PO SCH (09:00)
[2019-03-29] MEDS: LORATADINE 10 MG TABLET PO SCH (09:00)
[2019-03-29] MEDS: HYDROXYUREA 500 MG CAP PO SCH (09:48)
[2019-03-29] MEDS: MULTIVITAMIN TABLET PO SCH (09:48)
[2019-03-29] MEDS: SERTRALINE HCL 50 MG TABLET PO SCH (09:48)
[2019-03-29] MEDS: VERAPAMIL HCL 240 MG SRTAB PO SCH (09:48)
[2019-03-29] MEDS: LOSARTAN 50 MG TABLET PO SCH (09:48)
[2019-03-29] MEDS: FOLIC ACID 1 MG TABLET PO SCH (09:48)
[2019-03-29] MEDS: PANTOPRAZOLE SODIUM 40 MG TABLET.DR PO SCH (09:48)
--- NOTE | 2019-03-29 11:23 | NUR ---
DYSPHAGIA EVYASMIN COMPLETED. -S/S OF ASPIRATION. RECOMMEND REGULAR TEXTURE, THIN LIQUIDS; PILLS WHOLE WITH LIQUIDS. Addendum: 03/29/19 at 1124 by NIKKI LEARY, [facility] Amended: Links added.
[2019-03-29] MEDS: HYDROMORPHONE HCL 2 MG/ML VIAL IVP PRN (14:07)
--- NOTE | 2019-03-29 16:35 | NUR ---
INITIAL MET W PT, AAOX3, CHEERFUL, SOBOE WHEN TALKING, LIVES ALONE, HAS 25/01 CAREGIVES, HAS O, NEP TX, BED, SC, POWER CHAIR, WKR, HANDCAPPED BR; HAS HAD HH IN THE PAST, CANNOT REMEMBER NAME . HAS BEEN ON 02 ABOUT 5 YEARS. DCP IS HOME, ANTICIPATING O NEW DC NEEDS Addendum: 03/30/19 at 1759 by JEFF MONROY RN CM Amended: Links added.
--- NOTE | 2019-03-29 16:48 | NUR ---
RD NOTIFICATION DX: RESPIRATORY DISTRESS, COPD EXACERBATION. HX PT CLAIMS SHE IS NOT DM. DIET: 75GMCCD. BMI IS 22.5; CLASSIFIED NORMAL. PO INTAKE 50%. PT DOES NOT HAVE AN APPETITE AND HAS NOTICED THIS AN ISSUE FOR MANY YEARS NOW. SHE CLAIMS TO EAT ONLY BECAUSE SHE NEEDS TO. PT STATED SHE DOES NOT HAVE PLEASURE WHEN EATING. HOWEVER, PT LIKES SANDWICHES HER MEAL. RD RECOMMENDS TO CONTINUE CURRENT DIET, ADD HEART HEALTHY. PT WANTS A POPSICLE FOR LUNCH AND DINNER. PT LIKES SANDWICHES HER MEAL. RECOMMEND TO CONSIDER AN APPETITE STIMULANT. RD WILL CONTINUE TO MONITOR AND FOLLOW UP NEEDED. THANK YOU. Addendum: 03/29/19 at [address] Amended: Links added.
[2019-03-29] MEDS: CLONAZEPAM 0.5 MG TABLET PO SCH (20:48)
[2019-03-29] MEDS: MONTELUKAST SODIUM 10 MG TAB PO SCH (20:49)
[2019-03-29] MEDS: ATORVASTATIN CALCIUM 10 MG TABLET PO SCH (20:49)
[2019-03-29] MEDS: ZOLPIDEM TARTRATE 5 MG TAB PO SCH (20:49)
[2019-03-29] MEDS: MIRTAZAPINE 15 MG TABLET PO SCH (20:50)
[2019-03-30] MEDS: IPRATROPIUM/ALBUTEROL SULFATE 3 ML SOLUTION IH SCH ×6 (02:00→21:38)
[2019-03-30 03:51] VITALS: BP 147/82
[2019-03-30 05:52] LABS: HEMATOCRIT 42.2 % (36-48); MEAN CORPUSCULAR HEMOGLOBIN 30.3 pg (27.0-33.0); MEAN CORPUSCULAR VOLUME 91.8 fL (79-99); PLATELET COUNT (AUTO) 554 K/uL (130-400); RED CELL DISTRIBUTION WIDTH 16.1 % (11.0-15.5); WHITE BLOOD COUNT (AUTO) 18.9 K/uL (4.8-10.8)
[2019-03-30] MEDS: HYDROMORPHONE HCL 2 MG/ML VIAL IVP PRN (06:23)
[2019-03-30] MEDS: SUCRALFATE 1 GM TABLET PO SCH ×3 (06:24→17:40)
[2019-03-30] MEDS: BUDESONIDE 0.5 MG/2 ML INH IH SCH ×2 (06:28→18:37)
[2019-03-30] MEDS: INSULIN R PO SS1 SQ SCH ×4 (06:29→21:00)
[2019-03-30 06:55] LABS: LYMPHOCYTES % (MANUAL) 3 % (22-44); MAN.DIFF COMMENT-IMPRESSION MANUAL DIFFERENTIAL; MONOCYTES % (MANUAL) 4 % (2-9); SEGMENTED NEUTROPHILS % 93 % (40-70)
[2019-03-30 06:57] LABS: PLATELET MORPHOLOGY COMMENT MARKED INCREASE
[2019-03-30 07:30] VITALS: BP 155/82
[2019-03-30] MEDS: [UNRECOGNIZED DRUG - OTHER] PO SCH (09:00)
[2019-03-30] MEDS: [UNRECOGNIZED DRUG - OTHER] PO SCH (09:00)
[2019-03-30] MEDS: SERTRALINE HCL 50 MG TABLET PO SCH (09:43)
[2019-03-30] MEDS: FOLIC ACID 1 MG TABLET PO SCH (09:43)
[2019-03-30] MEDS: HYDROXYUREA 500 MG CAP PO SCH (09:43)
[2019-03-30] MEDS: VERAPAMIL HCL 240 MG SRTAB PO SCH (09:43)
[2019-03-30] MEDS: LORATADINE 10 MG TABLET PO SCH (09:43)
[2019-03-30] MEDS: LOSARTAN 50 MG TABLET PO SCH (09:43)
[2019-03-30] MEDS: MULTIVITAMIN TABLET PO SCH (09:43)
[2019-03-30] MEDS: PANTOPRAZOLE SODIUM 40 MG TABLET.DR PO SCH (09:43)
[2019-03-30] MEDS: BENZONATATE 100 MG CAPSULE PO SCH ×3 (09:43→21:09)
[2019-03-30 11:00] VITALS: BP 158/79
[2019-03-30 16:00] VITALS: BP 137/63
[2019-03-30] MEDS: LEVOFLOXACIN 750 MG/D5W 150 ML 150 ML IV SCH (18:16)
[2019-03-30] MEDS: TRAMADOL HCL 50 MG TABLET PO PRN (18:16)
[2019-03-30 20:00] VITALS: BP 145/72
[2019-03-30] MEDS: MONTELUKAST SODIUM 10 MG TAB PO SCH (21:09)
[2019-03-30] MEDS: ATORVASTATIN CALCIUM 10 MG TABLET PO SCH (21:09)
[2019-03-30] MEDS: MIRTAZAPINE 15 MG TABLET PO SCH (21:09)
[2019-03-30] MEDS: CLONAZEPAM 0.5 MG TABLET PO SCH (21:09)
[2019-03-30] MEDS: ZOLPIDEM TARTRATE 5 MG TAB PO SCH (21:09)
[2019-03-31] VITALS: BP 145/72
[2019-03-31] MEDS: IPRATROPIUM/ALBUTEROL SULFATE 3 ML SOLUTION IH SCH ×8 (01:35→23:07)
[2019-03-31 04:00] VITALS: BP 153/91
[2019-03-31] MEDS: HYDROMORPHONE HCL 2 MG/ML VIAL IVP PRN (04:06)
[2019-03-31 04:39] LABS: HEMATOCRIT 44.6 % (36-48); MEAN CORPUSCULAR HEMOGLOBIN 30.1 pg (27.0-33.0); MEAN CORPUSCULAR HGB CONC 32.3 g/dL (32.0-36.0); NUCLEATED RED BLOOD CELLS 0.1 % (0.0-0.19); PLATELET COUNT (AUTO) 435 K/uL (130-400); RED CELL DISTRIBUTION WIDTH 15.6 % (11.0-15.5); WHITE BLOOD COUNT (AUTO) 18.9 K/uL (4.8-10.8)
[2019-03-31 04:43] LABS: BASOPHILS % (MANUAL) 1 % (0-2); MAN.DIFF COMMENT-IMPRESSION MANUAL DIFFERENTIAL
[2019-03-31 04:48] LABS: EOSINOPHILS % (MANUAL) 2 % (1-6); LYMPHOCYTES % (MANUAL) 3 % (22-44); MONOCYTES % (MANUAL) 7 % (2-9); SEGMENTED NEUTROPHILS % 87 % (40-70)
[2019-03-31] MEDS: BUDESONIDE 0.5 MG/2 ML INH IH SCH ×2 (06:17→18:39)
[2019-03-31] MEDS: INSULIN R PO SS1 SQ SCH ×4 (06:18→21:00)
[2019-03-31] MEDS: SUCRALFATE 1 GM TABLET PO SCH ×3 (06:23→16:24)
[2019-03-31 08:00] VITALS: BP 150/91
[2019-03-31] MEDS: SERTRALINE HCL 50 MG TABLET PO SCH (08:16)
[2019-03-31] MEDS: PANTOPRAZOLE SODIUM 40 MG TABLET.DR PO SCH (08:17)
[2019-03-31] MEDS: MULTIVITAMIN TABLET PO SCH (08:17)
[2019-03-31] MEDS: FOLIC ACID 1 MG TABLET PO SCH (08:17)
[2019-03-31] MEDS: LOSARTAN 50 MG TABLET PO SCH (08:18)
[2019-03-31] MEDS: [UNRECOGNIZED DRUG - OTHER] PO SCH (09:00)
[2019-03-31] MEDS: [UNRECOGNIZED DRUG - OTHER] PO SCH (09:00)
--- NOTE | 2019-03-31 09:16 | NUR ---
charge nurse barb souza call me while i was medicating patient in 321 that the patient in 319 fell. as per barb souza the patient was in the bath when she fell. the patient trying to have a bowel movement according to her but began to be short of breath and fell on her buttock. assessed patient back, buttock, arms, neck, head and no bruising redness or wound sustained from the fall. according to the patient she did not hit her head or back. charge nurse notified the director Jonas, i tried to call dr. martinez to notify him of the fall. ask the patient if there is a family that i can call to notify. the patient verbalized that her family is in [place] and no she did not want me to call her family. as for now me and barb put her back in the bed to get her vital signs, blood pressure is 179/78, heart rate 111, oxygen saturation of 98 on 3 liters, denies pain, denies shortness of breath, denies chest pain, back pain. patient is lying comfortable in the bed with the oxygen on. will call back dr. martinez to notify him.
[2019-03-31] MEDS: LORATADINE 10 MG TABLET PO SCH (09:45)
[2019-03-31] MEDS: BENZONATATE 100 MG CAPSULE PO SCH ×3 (09:45→20:04)
[2019-03-31] MEDS: VERAPAMIL HCL 240 MG SRTAB PO SCH (09:45)
[2019-03-31] MEDS: HYDROXYUREA 500 MG CAP PO SCH (09:45)
[2019-03-31] MEDS ORDERED: DILTIAZEM HCL 5 MG/ML 10 ML VIAL IV SCH (14:00)
[2019-03-31] MEDS ORDERED: DILTIAZEM HCL 5 MG/ML 10 ML VIAL IV PRN (14:15)
[2019-03-31 16:00] VITALS: BP 124/49
[2019-03-31] MEDS: METHYLPREDNISOLONE SOD SUCC 40MG/ML 1ML IVP SCH ×2 (16:24→21:34)
[2019-03-31] MEDS: METHYLPREDNISOLONE SOD SUCC 125MG/2ML VIAL IVP SCH ×2 (17:30→23:52)
[2019-03-31] MEDS: ACETYLCYSTEINE 10% 100MG/ML 4ML VIAL IH SCH ×2 (18:10→23:07)
[2019-03-31 20:00] VITALS: BP 134/60
[2019-03-31] MEDS: ATORVASTATIN CALCIUM 10 MG TABLET PO SCH (20:04)
[2019-03-31] MEDS: ZOLPIDEM TARTRATE 5 MG TAB PO SCH (20:04)
[2019-03-31] MEDS: MIRTAZAPINE 15 MG TABLET PO SCH (20:05)
[2019-03-31] MEDS: MONTELUKAST SODIUM 10 MG TAB PO SCH (20:05)
[2019-03-31] MEDS: CLONAZEPAM 0.5 MG TABLET PO SCH (20:05)
[2019-04-01] VITALS (7 sets, daily range): BP systolic 130–160; BP diastolic 59–80
[2019-04-01] MEDS: IPRATROPIUM/ALBUTEROL SULFATE 3 ML SOLUTION IH SCH ×10 (02:00→23:07)
[2019-04-01] MEDS: METHYLPREDNISOLONE SOD SUCC 125MG/2ML VIAL IVP SCH ×4 (04:51→23:10)
[2019-04-01 05:44] LABS: HEMATOCRIT 43.8 % (36-48); MEAN CORPUSCULAR HGB CONC 32.8 g/dL (32.0-36.0); MEAN CORPUSCULAR VOLUME 91.5 fL (79-99); PLATELET COUNT (AUTO) 363 K/uL (130-400); RED BLOOD CELL COUNT(AUTO) 4.79 MIL/uL (4.00-5.50); RED CELL DISTRIBUTION WIDTH 15.7 % (11.0-15.5); WHITE BLOOD COUNT (AUTO) 10.9 K/uL (4.8-10.8)
[2019-04-01] MEDS: BUDESONIDE 0.5 MG/2 ML INH IH SCH ×2 (06:07→18:32)
[2019-04-01] MEDS: ACETYLCYSTEINE 10% 100MG/ML 4ML VIAL IH SCH ×4 (06:07→23:07)
[2019-04-01 06:12] LABS: CREATININE 1.2 mg/dL (0.5-1.5); POTASSIUM 3.9 mmol/L (3.5-5.1)
[2019-04-01] MEDS: INSULIN R PO SS1 SQ SCH ×4 (06:19→20:41)
[2019-04-01] MEDS: SUCRALFATE 1 GM TABLET PO SCH ×3 (06:36→17:16)
[2019-04-01] MEDS: [UNRECOGNIZED DRUG - OTHER] PO SCH (07:19)
[2019-04-01] MEDS: [UNRECOGNIZED DRUG - OTHER] PO SCH (07:19)
[2019-04-01] MEDS: MULTIVITAMIN TABLET PO SCH (09:01)
[2019-04-01] MEDS: LOSARTAN 50 MG TABLET PO SCH (09:01)
[2019-04-01] MEDS: FOLIC ACID 1 MG TABLET PO SCH (09:01)
[2019-04-01] MEDS: HYDROXYUREA 500 MG CAP PO SCH (09:01)
[2019-04-01] MEDS: VERAPAMIL HCL 240 MG SRTAB PO SCH (09:01)
[2019-04-01] MEDS: SERTRALINE HCL 50 MG TABLET PO SCH (09:01)
[2019-04-01] MEDS: BENZONATATE 100 MG CAPSULE PO SCH ×3 (09:02→20:40)
[2019-04-01] MEDS: PANTOPRAZOLE SODIUM 40 MG TABLET.DR PO SCH (09:02)
[2019-04-01] MEDS: LORATADINE 10 MG TABLET PO SCH (09:02)
[2019-04-01] MEDS: TRAMADOL HCL 50 MG TABLET PO PRN (12:31)
[2019-04-01] MEDS: LEVOFLOXACIN 750 MG/D5W 150 ML 150 ML IV SCH (17:16)
--- NOTE | 2019-04-01 18:55 | NUR ---
D/C PLAN F/U CM spoke to pt regarding d/c planning. CM explained MD orders for short term snf/rehab. Pt declined. States she has all necessary DME and has caregivers. States she has had home health in the past. RAUL explained that services can be arranged prior to d/c if Dr. Cifuentes agrees and gives orders. RAUL notified pt that if services not arrange in hospital, pt can still obtain orders for home health as an outpatient. Verbalized understanding. States she will obtain information for previous home health agency and update CM. CM updated nursing. CM to f/u. Addendum: 04/01/19 at 1858 by RUTHANN BRANHAM CM Amended: Links added.
[2019-04-01] MEDS: MIRTAZAPINE 15 MG TABLET PO SCH (20:40)
[2019-04-01] MEDS: MONTELUKAST SODIUM 10 MG TAB PO SCH (20:40)
[2019-04-01] MEDS: ATORVASTATIN CALCIUM 10 MG TABLET PO SCH (20:40)
[2019-04-01] MEDS: ZOLPIDEM TARTRATE 5 MG TAB PO SCH (21:42)
[2019-04-01] MEDS: CLONAZEPAM 0.5 MG TABLET PO SCH (21:43)
--- NOTE | 2019-04-01 23:57 | NUR ---
bp 160/77 pt coughing concomitantly with duonebs in progress,will monitor/recheck Addendum: 04/01/19 at 2359 by THEODORA OSHEA RN RN Amended: Links added.
[2019-04-02] MEDS: TRAMADOL HCL 50 MG TABLET PO PRN ×2 (00:54→10:36)
[2019-04-02] MEDS: IPRATROPIUM/ALBUTEROL SULFATE 3 ML SOLUTION IH SCH ×10 (02:00→23:13)
[2019-04-02 03:00] VITALS: BP 145/66
[2019-04-02] MEDS: METHYLPREDNISOLONE SOD SUCC 125MG/2ML VIAL IVP SCH ×2 (05:19→20:31)
[2019-04-02] MEDS: INSULIN R PO SS1 SQ SCH ×4 (06:06→21:00)
[2019-04-02] MEDS: ACETYLCYSTEINE 10% 100MG/ML 4ML VIAL IH SCH ×4 (06:24→23:12)
[2019-04-02 06:28] LABS: HEMATOCRIT 44.9 % (36-48); MEAN CORPUSCULAR HEMOGLOBIN 29.4 pg (27.0-33.0); MEAN CORPUSCULAR HGB CONC 31.9 g/dL (32.0-36.0); MEAN CORPUSCULAR VOLUME 92.2 fL (79-99); NUCLEATED RED BLOOD CELLS 0.1 % (0.0-0.19); PLATELET COUNT (AUTO) 406 K/uL (130-400); RED BLOOD CELL COUNT(AUTO) 4.87 MIL/uL (4.00-5.50); RED CELL DISTRIBUTION WIDTH 15.9 % (11.0-15.5); WHITE BLOOD COUNT (AUTO) 23.9 K/uL (4.8-10.8)
[2019-04-02] MEDS: BUDESONIDE 0.5 MG/2 ML INH IH SCH ×2 (06:49→18:27)
[2019-04-02] MEDS: SUCRALFATE 1 GM TABLET PO SCH ×3 (06:54→17:00)
[2019-04-02 07:00] VITALS: BP 149/97
[2019-04-02 07:05] LABS: CREATININE 1.2 mg/dL (0.5-1.5); POTASSIUM 3.3 mmol/L (3.5-5.1)
[2019-04-02] MEDS: [UNRECOGNIZED DRUG - OTHER] PO SCH (09:00)
[2019-04-02] MEDS: [UNRECOGNIZED DRUG - OTHER] PO SCH (09:00)
[2019-04-02] MEDS: VERAPAMIL HCL 240 MG SRTAB PO SCH (09:27)
[2019-04-02] MEDS: MULTIVITAMIN TABLET PO SCH (09:27)
[2019-04-02] MEDS: BENZONATATE 100 MG CAPSULE PO SCH ×3 (09:27→20:32)
[2019-04-02] MEDS: LORATADINE 10 MG TABLET PO SCH (09:28)
[2019-04-02] MEDS: FOLIC ACID 1 MG TABLET PO SCH (09:28)
[2019-04-02] MEDS: PANTOPRAZOLE SODIUM 40 MG TABLET.DR PO SCH (09:28)
[2019-04-02] MEDS: LOSARTAN 50 MG TABLET PO SCH (09:28)
[2019-04-02] MEDS: SERTRALINE HCL 50 MG TABLET PO SCH (09:28)
[2019-04-02] MEDS: HYDROXYUREA 500 MG CAP PO SCH (09:28)
[2019-04-02 11:00] VITALS: BP 145/83
[2019-04-02 16:00] VITALS: BP 146/78
[2019-04-02] MEDS ORDERED: LIDOCAINE HCL-MPF 1% 2ML VIAL IV PRN (18:00)
[2019-04-02] MEDS ORDERED: POTASSIUM CHLORIDE 20MEQ/100ML 100 ML IV PRN (18:00)
[2019-04-02] MEDS ORDERED: POTASSIUM CHLORIDE 10% ELIXIR 20 MEQ/15 ML UDCUP PO PRN (18:00)
[2019-04-02 19:45] VITALS: BP 138/67
[2019-04-02] MEDS: MONTELUKAST SODIUM 10 MG TAB PO SCH (20:31)
[2019-04-02] MEDS: ATORVASTATIN CALCIUM 10 MG TABLET PO SCH (20:32)
[2019-04-02] MEDS: MIRTAZAPINE 15 MG TABLET PO SCH (21:51)
[2019-04-02] MEDS: ZOLPIDEM TARTRATE 5 MG TAB PO SCH (21:51)
[2019-04-02] MEDS: CLONAZEPAM 0.5 MG TABLET PO SCH (21:51)
[2019-04-02] MEDS: POTASSIUM CHLORIDE 20 MEQ ERTAB PO PRN (23:17)
[2019-04-03] VITALS (7 sets, daily range): BP systolic 138–170; BP diastolic 61–93
[2019-04-03] MEDS: IPRATROPIUM/ALBUTEROL SULFATE 3 ML SOLUTION IH SCH ×6 (02:00→23:33)
[2019-04-03] MEDS: POTASSIUM CHLORIDE 20 MEQ ERTAB PO PRN (03:05)
[2019-04-03] MEDS: TRAMADOL HCL 50 MG TABLET PO PRN (03:07)
[2019-04-03 05:35] LABS: HEMATOCRIT 41.7 % (36-48); MEAN CORPUSCULAR HEMOGLOBIN 29.9 pg (27.0-33.0); MEAN CORPUSCULAR HGB CONC 32.8 g/dL (32.0-36.0); MEAN CORPUSCULAR VOLUME 91.3 fL (79-99); PLATELET COUNT (AUTO) 405 K/uL (130-400); RED BLOOD CELL COUNT(AUTO) 4.56 MIL/uL (4.00-5.50); RED CELL DISTRIBUTION WIDTH 15.4 % (11.0-15.5)
[2019-04-03 05:53] LABS: CREATININE 1.2 mg/dL (0.5-1.5); POTASSIUM 3.8 mmol/L (3.5-5.1)
[2019-04-03] MEDS: SUCRALFATE 1 GM TABLET PO SCH ×3 (06:41→17:38)
[2019-04-03] MEDS: BUDESONIDE 0.5 MG/2 ML INH IH SCH ×2 (06:41→18:25)
[2019-04-03] MEDS: ACETYLCYSTEINE 10% 100MG/ML 4ML VIAL IH SCH ×3 (06:42→23:33)
[2019-04-03] MEDS: INSULIN R PO SS1 SQ SCH ×4 (06:44→21:00)
[2019-04-03] MEDS: LORATADINE 10 MG TABLET PO SCH (08:58)
[2019-04-03] MEDS: BENZONATATE 100 MG CAPSULE PO SCH ×3 (08:58→21:42)
[2019-04-03] MEDS: LOSARTAN 50 MG TABLET PO SCH (08:58)
[2019-04-03] MEDS: MULTIVITAMIN TABLET PO SCH (08:59)
[2019-04-03] MEDS: FOLIC ACID 1 MG TABLET PO SCH (08:59)
[2019-04-03] MEDS: VERAPAMIL HCL 240 MG SRTAB PO SCH (08:59)
[2019-04-03] MEDS: [UNRECOGNIZED DRUG - OTHER] PO SCH (09:00)
[2019-04-03] MEDS: SERTRALINE HCL 50 MG TABLET PO SCH (09:00)
[2019-04-03] MEDS: METHYLPREDNISOLONE SOD SUCC 125MG/2ML VIAL IVP SCH (09:00)
[2019-04-03] MEDS: [UNRECOGNIZED DRUG - OTHER] PO SCH (09:00)
[2019-04-03] MEDS: PANTOPRAZOLE SODIUM 40 MG TABLET.DR PO SCH (09:00)
[2019-04-03] MEDS: ENOXAPARIN SODIUM 30 MG/0.3 ML SQ SCH (09:01)
[2019-04-03] MEDS: HYDROXYUREA 500 MG CAP PO SCH (09:03)
[2019-04-03] MEDS: HYDROMORPHONE HCL 2 MG/ML VIAL IVP PRN (11:58)
--- NOTE | 2019-04-03 11:58 | NUR ---
CM Note: [facility] Sp[facility] to [facility], stated pt is active with them, has acceptance, will follow through w/Dr Cfiuentes's office for orders. Received faxed clinicals. Primary nurse aware. CM to cont to follow up.
[2019-04-03] MEDS: LEVOFLOXACIN 750 MG/D5W 150 ML 150 ML IV SCH (17:38)
[2019-04-03] MEDS: PREDNISONE 20 MG TABLET PO SCH (21:41)
[2019-04-03] MEDS: CLONAZEPAM 0.5 MG TABLET PO SCH (21:41)
[2019-04-03] MEDS: ZOLPIDEM TARTRATE 5 MG TAB PO SCH (21:41)
[2019-04-03] MEDS: MONTELUKAST SODIUM 10 MG TAB PO SCH (21:42)
[2019-04-03] MEDS: MIRTAZAPINE 15 MG TABLET PO SCH (21:42)
[2019-04-03] MEDS: ATORVASTATIN CALCIUM 10 MG TABLET PO SCH (21:42)
[2019-04-04 04:10] VITALS: BP 139/66
[2019-04-04 05:31] LABS: HEMATOCRIT 39.5 % (36-48); MEAN CORPUSCULAR HGB CONC 32.7 g/dL (32.0-36.0); MEAN CORPUSCULAR VOLUME 91.8 fL (79-99); PLATELET COUNT (AUTO) 349 K/uL (130-400); RED CELL DISTRIBUTION WIDTH 15.4 % (11.0-15.5); WHITE BLOOD COUNT (AUTO) 15.1 K/uL (4.8-10.8)
[2019-04-04 05:40] LABS: CREATININE 1.2 mg/dL (0.5-1.5)
[2019-04-04] MEDS: INSULIN R PO SS1 SQ SCH ×4 (06:02→21:00)
[2019-04-04] MEDS: IPRATROPIUM/ALBUTEROL SULFATE 3 ML SOLUTION IH SCH ×4 (06:07→23:22)
[2019-04-04] MEDS: ACETYLCYSTEINE 10% 100MG/ML 4ML VIAL IH SCH ×4 (06:07→23:22)
[2019-04-04] MEDS: BUDESONIDE 0.5 MG/2 ML INH IH SCH ×2 (06:31→18:10)
[2019-04-04] MEDS: SUCRALFATE 1 GM TABLET PO SCH ×3 (06:36→17:14)
[2019-04-04 08:00] VITALS: BP 154/70
[2019-04-04] MEDS: [UNRECOGNIZED DRUG - OTHER] PO SCH (09:00)
[2019-04-04] MEDS: [UNRECOGNIZED DRUG - OTHER] PO SCH (09:00)
[2019-04-04] MEDS: MULTIVITAMIN TABLET PO SCH (10:18)
[2019-04-04] MEDS: HYDROXYUREA 500 MG CAP PO SCH (10:18)
[2019-04-04] MEDS: LOSARTAN 50 MG TABLET PO SCH (10:18)
[2019-04-04] MEDS: PANTOPRAZOLE SODIUM 40 MG TABLET.DR PO SCH (10:18)
[2019-04-04] MEDS: SERTRALINE HCL 50 MG TABLET PO SCH (10:18)
[2019-04-04] MEDS: PREDNISONE 20 MG TABLET PO SCH ×2 (10:18→21:05)
[2019-04-04] MEDS: FOLIC ACID 1 MG TABLET PO SCH (10:18)
[2019-04-04] MEDS: VERAPAMIL HCL 240 MG SRTAB PO SCH (10:19)
[2019-04-04] MEDS: ENOXAPARIN SODIUM 30 MG/0.3 ML SQ SCH (10:28)
[2019-04-04] MEDS: BENZONATATE 100 MG CAPSULE PO SCH ×3 (10:30→21:05)
[2019-04-04] MEDS: LORATADINE 10 MG TABLET PO SCH (10:30)
[2019-04-04 12:00] VITALS: BP 184/91
[2019-04-04] MEDS: TRAMADOL HCL 50 MG TABLET PO PRN ×2 (13:40→21:04)
[2019-04-04 16:00] VITALS: BP 98/50
--- NOTE | 2019-04-04 16:22 | NUR ---
RD FOLLOW UP NOTE Pt tolerating 75gm CC, Heart Healthy Diet order as per Pt. Pt with improved PO intake (100%). Pt with no report of GI distress. Pt LBM 04/03/19. Pt monitored labs: BUN 38, GFR 46, Glu 129, Ca 8.4. No other nutrition concerns at this time. RD to continue to monitor. Please notify RD as nutritional concerns arise. Thank you. Addendum: 04/04/19 at [address] Amended: Links added.
[2019-04-04] MEDS ORDERED: HYDRALAZINE HCL 20 MG/ML VIAL IV PRN (18:30)
[2019-04-04 19:00] VITALS: BP 123/52
[2019-04-04] MEDS ORDERED: FLU VACC QS2019-20 36MOS UP/PF 60 MCG/0.5 ML ML IM ONE ×2 (20:11→21:00)
--- NOTE | 2019-04-04 20:45 | NUR ---
DR. CASTANEDA rounded: Visited and talked to patient. No new orders. Continue monitor.
[2019-04-04] MEDS: MIRTAZAPINE 15 MG TABLET PO SCH (21:05)
[2019-04-04] MEDS: MONTELUKAST SODIUM 10 MG TAB PO SCH (21:05)
[2019-04-04] MEDS: ATORVASTATIN CALCIUM 10 MG TABLET PO SCH (21:05)
[2019-04-04 23:45] VITALS: BP 127/88
[2019-04-05] MEDS: ZOLPIDEM TARTRATE 5 MG TAB PO SCH ×2 (01:00→21:39)
[2019-04-05] MEDS: CLONAZEPAM 0.5 MG TABLET PO SCH ×2 (01:00→21:39)
[2019-04-05] MEDS: MIRTAZAPINE 15 MG TABLET PO SCH ×2 (01:01→21:39)
[2019-04-05 04:00] VITALS: BP 163/76
[2019-04-05 05:54] LABS: BASOPHILS % (AUTO) 0.3 % (0.0-5.0); EOSINOPHILS % (AUTO) 0.1 % (0.0-8.0); HEMATOCRIT 39.7 % (36-48); LYMPHOCYTES % (AUTO) 1.4 % (21.0-51.0); MEAN CORPUSCULAR HEMOGLOBIN 29.9 pg (27.0-33.0); MEAN CORPUSCULAR HGB CONC 32.7 g/dL (32.0-36.0); MEAN CORPUSCULAR VOLUME 91.5 fL (79-99); MONOCYTES % (AUTO) 3.1 % (3.0-13.0); NEUTROPHILS % (AUTO) 95.1 % (40.0-77.0); NUCLEATED RED BLOOD CELLS 0.1 % (0.0-0.19); PLATELET COUNT (AUTO) 367 K/uL (130-400); RED BLOOD CELL COUNT(AUTO) 4.33 MIL/uL (4.00-5.50); RED CELL DISTRIBUTION WIDTH 15.6 % (11.0-15.5); WHITE BLOOD COUNT (AUTO) 15.5 K/uL (4.8-10.8)
[2019-04-05] MEDS: INSULIN R PO SS1 SQ SCH ×4 (06:22→21:00)
[2019-04-05] MEDS: IPRATROPIUM/ALBUTEROL SULFATE 3 ML SOLUTION IH SCH ×6 (06:27→23:29)
[2019-04-05] MEDS: ACETYLCYSTEINE 10% 100MG/ML 4ML VIAL IH SCH ×4 (06:27→23:30)
[2019-04-05 06:28] LABS: CREATININE 1.1 mg/dL (0.5-1.5); POTASSIUM 3.9 mmol/L (3.5-5.1)
[2019-04-05] MEDS: BUDESONIDE 0.5 MG/2 ML INH IH SCH ×2 (06:58→18:45)
[2019-04-05] MEDS: SUCRALFATE 1 GM TABLET PO SCH ×3 (07:52→17:35)
[2019-04-05 08:00] VITALS: BP 159/81
[2019-04-05] MEDS: PANTOPRAZOLE SODIUM 40 MG TABLET.DR PO SCH (08:56)
[2019-04-05] MEDS: TRAMADOL HCL 50 MG TABLET PO PRN ×2 (08:56→20:12)
[2019-04-05] MEDS: MULTIVITAMIN TABLET PO SCH (08:57)
[2019-04-05] MEDS: BENZONATATE 100 MG CAPSULE PO SCH ×3 (08:57→21:39)
[2019-04-05] MEDS: LORATADINE 10 MG TABLET PO SCH (08:57)
[2019-04-05] MEDS: LOSARTAN 50 MG TABLET PO SCH (08:57)
[2019-04-05] MEDS: FOLIC ACID 1 MG TABLET PO SCH (08:57)
[2019-04-05] MEDS: VERAPAMIL HCL 240 MG SRTAB PO SCH (08:58)
[2019-04-05] MEDS: HYDROXYUREA 500 MG CAP PO SCH (08:58)
[2019-04-05] MEDS: PREDNISONE 20 MG TABLET PO SCH ×2 (08:58→21:39)
[2019-04-05] MEDS: SERTRALINE HCL 50 MG TABLET PO SCH (08:58)
[2019-04-05] MEDS: [UNRECOGNIZED DRUG - OTHER] PO SCH (09:01)
[2019-04-05] MEDS: [UNRECOGNIZED DRUG - OTHER] PO SCH (09:01)
[2019-04-05] MEDS: ENOXAPARIN SODIUM 30 MG/0.3 ML SQ SCH (09:01)
[2019-04-05 12:00] VITALS: BP 156/68
[2019-04-05 16:00] VITALS: BP 158/87
[2019-04-05] MEDS: LEVOFLOXACIN 750 MG/D5W 150 ML 150 ML IV SCH (17:35)
[2019-04-05 19:00] VITALS: BP 144/77
[2019-04-05] MEDS ORDERED: THEOPHYLLINE ANHYDROUS 80 MG/15 ML PO SCH (21:00)
[2019-04-05] MEDS: MONTELUKAST SODIUM 10 MG TAB PO SCH (21:39)
[2019-04-05] MEDS: ATORVASTATIN CALCIUM 10 MG TABLET PO SCH (21:39)
[2019-04-05 23:00] VITALS: BP 142/80
[2019-04-06 03:00] VITALS: BP 157/78
[2019-04-06] MEDS: INSULIN R PO SS1 SQ SCH (05:22)
[2019-04-06 05:45] LABS: BASOPHILS % (AUTO) 0.3 % (0.0-5.0); EOSINOPHILS % (AUTO) 0.2 % (0.0-8.0); HEMATOCRIT 41.3 % (36-48); LYMPHOCYTES % (AUTO) 1.2 % (21.0-51.0); MEAN CORPUSCULAR HEMOGLOBIN 29.5 pg (27.0-33.0); MEAN CORPUSCULAR HGB CONC 31.8 g/dL (32.0-36.0); MONOCYTES % (AUTO) 2.9 % (3.0-13.0); NEUTROPHILS % (AUTO) 95.4 % (40.0-77.0); PLATELET COUNT (AUTO) 310 K/uL (130-400); RED BLOOD CELL COUNT(AUTO) 4.44 MIL/uL (4.00-5.50); RED CELL DISTRIBUTION WIDTH 15.3 % (11.0-15.5); WHITE BLOOD COUNT (AUTO) 15.9 K/uL (4.8-10.8)
[2019-04-06 05:58] LABS: PHOSPHORUS 2.3 mg/dL (2.5-4.9); POTASSIUM 4.1 mmol/L (3.5-5.1)
[2019-04-06] MEDS: IPRATROPIUM/ALBUTEROL SULFATE 3 ML SOLUTION IH SCH ×3 (06:00→11:10)
[2019-04-06] MEDS: SUCRALFATE 1 GM TABLET PO SCH (06:29)
[2019-04-06] MEDS: BUDESONIDE 0.5 MG/2 ML INH IH SCH (06:45)
[2019-04-06] MEDS: ACETYLCYSTEINE 10% 100MG/ML 4ML VIAL IH SCH ×2 (06:52→11:10)
[2019-04-06 07:00] VITALS: BP 174/82
[2019-04-06] MEDS: PANTOPRAZOLE SODIUM 40 MG TABLET.DR PO SCH (07:32)
[2019-04-06] MEDS: FOLIC ACID 1 MG TABLET PO SCH (07:32)
[2019-04-06] MEDS: LORATADINE 10 MG TABLET PO SCH (07:32)
[2019-04-06] MEDS: BENZONATATE 100 MG CAPSULE PO SCH (07:32)
[2019-04-06] MEDS: SERTRALINE HCL 50 MG TABLET PO SCH (07:32)
[2019-04-06] MEDS: LOSARTAN 50 MG TABLET PO SCH (07:32)
[2019-04-06] MEDS: MULTIVITAMIN TABLET PO SCH (07:32)
[2019-04-06] MEDS: PREDNISONE 20 MG TABLET PO SCH (07:32)
[2019-04-06] MEDS: ENOXAPARIN SODIUM 30 MG/0.3 ML SQ SCH (07:33)
[2019-04-06] MEDS: VERAPAMIL HCL 240 MG SRTAB PO SCH (07:35)
[2019-04-06] MEDS: [UNRECOGNIZED DRUG - OTHER] PO SCH (07:35)
[2019-04-06] MEDS: [UNRECOGNIZED DRUG - OTHER] PO SCH (07:36)
[2019-04-06] MEDS: HYDROXYUREA 500 MG CAP PO SCH (07:36)
--- NOTE | 2019-04-06 11:42 | NUR ---
HOME HEALTH CALLED REPORT CALLED TO [facility]. PROGRESS NOTES AND H/P FAXED TO [phone]
[2019-04-06] MEDS ORDERED: LEVO500T2 PO ×2 (12:02→12:03)
[2019-04-06] MEDS ORDERED: PRED20TA3 PO (12:04)
[2019-04-06] MEDS ORDERED: FLUC100T PO (12:04)
[2019-05-02] MEDS ORDERED: NYST5ORA7 PO (21:07)
== END 2019-04-06 13:00 | disposition home health service (06) | DRG 871 ==
LOC: EDH 13:40 → EDHIP 16:50 → OBSVTOIN 16:50 → 3CH 19:26
PROVIDERS: ADMIT Internal Medicine; ATTEND Internal Medicine
DX: A41.9 Sepsis, unspecified organism (principal); J96.21 Acute and chronic respiratory failure with hypoxia; J18.9 Pneumonia, unspecified organism; J96.22 Acute and chronic respiratory failure with hypercapnia; E46 Unspecified protein-calorie malnutrition; J45.901 Unspecified asthma with (acute) exacerbation; J43.9 Emphysema, unspecified; D47.3 Essential (hemorrhagic) thrombocythemia; E11.9 Type 2 diabetes mellitus without complications; E78.5 Hyperlipidemia, unspecified; F41.9 Anxiety disorder, unspecified; G47.00 Insomnia, unspecified; I10 Essential (primary) hypertension; I25.10 Atherosclerotic heart disease of native coronary artery without angina pectoris; F32.9 Major depressive disorder, single episode, unspecified; W18.30XA Fall on same level, unspecified, initial encounter; Y92.231 Patient bathroom in hospital as the place of occurrence of the external cause; R62.7 Adult failure to thrive; Z80.3 Family history of malignant neoplasm of breast; Z86.73 Personal history of transient ischemic attack (TIA), and cerebral infarction without residual deficits; Z87.891 Personal history of nicotine dependence; Z99.81 Dependence on supplemental oxygen; Z23 Encounter for immunization; Z68.22 Body mass index [BMI] 22.0-22.9, adult; Z88.8 Allergy status to other drugs, medicaments and biological substances; Y93.89 Activity, other specified; Y99.8 Other external cause status
CPT/HCPCS: 36415; 70450; 71045; 71275; 80048; 80053; 81001; 82550; 82948; 83605; 83735; 83874; 83880; 84100; 84484; 85025; 85027; 85610; 85730; 87040; 87071; 87077; 87186; 87205; 87804; 92610; 93005; 94640; 94664; 94667; 94668; G0008; G0378; J0696; J1170; J1650; J1815; J1956; J2920; J2930; J7608; Q2035; Q9967

== ENCOUNTER 2019-07-10 13:53 | Emergency (ER) | payer MEDICARE ==
[~2019-07-10 13:53] MED LIST changes: +DOCU-116 PO; +NYST5ORA7 PO
[2019-07-10] MEDS ORDERED: MORPHINE SULFATE 2 MG/ML 1ML SYG ONE (15:24)
[2019-07-10 16:28] LABS: BASOPHILS % (AUTO) 0.5 % (0.0-5.0); EOSINOPHILS % (AUTO) 1.7 % (0.0-8.0); LYMPHOCYTES % (AUTO) 11.6 % (21.0-51.0); MEAN CORPUSCULAR HEMOGLOBIN 28.2 pg (27.0-33.0); MEAN CORPUSCULAR HGB CONC 30.3 g/dL (32.0-36.0); MEAN CORPUSCULAR VOLUME 93.3 fL (79-99); MONOCYTES % (AUTO) 6.5 % (3.0-13.0); NEUTROPHILS % (AUTO) 79.2 % (40.0-77.0); PLATELET COUNT (AUTO) 531 K/uL (130-400); RED BLOOD CELL COUNT(AUTO) 4.18 MIL/uL (4.00-5.50); RED CELL DISTRIBUTION WIDTH 16.3 % (11.0-15.5); WHITE BLOOD COUNT (AUTO) 9.6 K/uL (4.8-10.8)
[2019-07-10 16:35] LABS: CREATININE 1.4 mg/dL (0.5-1.5); POTASSIUM 3.9 mmol/L (3.5-5.1)
[2019-07-10] MEDS ORDERED: LIDOCAINE 5% TOPICAL PATCH TP ONE (16:55)
== END 2019-07-10 17:32 | disposition home or self-care (01) ==
LOC: EDH 13:53
DX: M54.5 Low back pain (principal); J44.9 Chronic obstructive pulmonary disease, unspecified; E11.9 Type 2 diabetes mellitus without complications; E78.5 Hyperlipidemia, unspecified; I10 Essential (primary) hypertension; Z88.6 Allergy status to analgesic agent; Z88.8 Allergy status to other drugs, medicaments and biological substances; Z98.51 Tubal ligation status; Z90.710 Acquired absence of both cervix and uterus; Z87.891 Personal history of nicotine dependence; Z86.73 Personal history of transient ischemic attack (TIA), and cerebral infarction without residual deficits
CPT/HCPCS: 36415; 72131; 80048; 85025; 96374